=== PATIENT | female | born 1940 ===

== ENCOUNTER 2017-03-23 21:11 | Inpatient (IN) | payer OTHER, MEDICARE ==
[2017-03-23] MEDS ORDERED: Albuterol-Ipratrop 3 mg / 0.5 (3 ml) UD IH STA (22:08)
[2017-03-23 22:24] LABS: BASO # 0.1 K/uL (0.0-0.2); BASO % 0.7 % (0.0-2.0); EOS # 0.6 K/uL (0.0-0.7); EOS % 5.5 % (0.0-4.0); LYMPH # 2.6 K/uL (1.0-4.3); LYMPH % 23.5 % (20.0-40.0); MEAN CORPUSCULAR HEMOGLOBIN 30.7 pg (27.0-31.0); MEAN CORPUSCULAR HGB CONC 33.3 g/dL (33.0-37.0); MONO % 8.9 % (0.0-10.0); RED CELL DISTRIBUTION WIDTH 12.9 % (11.5-14.5); WHITE BLOOD COUNT 11.2 K/uL (4.8-10.8)
[2017-03-23] MEDS ORDERED: Albuterol-Ipratrop 3 mg / 0.5 (3 ml) UD ONE (22:25)
[2017-03-23 22:33] LABS: CHLORIDE 100 mmol/L (98-107)
[2017-03-23 22:34] LABS: POTASSIUM 4.3 mmol/L (3.6-5.2); SODIUM 141 mmol/L (132-148)
[2017-03-23 22:36] LABS: ALB/GLOB RATIO 1.1 (1.0-2.1); ALKALINE PHOSPHATASE 55 U/L (38-126); AST/SGOT 79 U/L (14-36); BILIRUBIN,TOTAL 0.6 mg/dL (0.2-1.3); BLOOD UREA NITROGEN 24 mg/dL (7-17); CARBON DIOXIDE 28 mmol/L (22-30); GFR AFRICAN-AMERICAN > 60; GLUCOSE,RANDOM 128 mg/dL (65-105); TOTAL PROTEIN 7.7 g/dL (6.3-8.3)
[2017-03-23 22:37] LABS: ALT/SGPT 55 U/L (9-52); CALCIUM 9.1 mg/dl (8.6-10.4)
[2017-03-23] MEDS ORDERED: Sodium Chloride 0.9% 1,000 ML IV ONE (22:59)
[2017-03-23] MEDS ORDERED: Sodium Chloride 0.9% 1,000 ML ONE (23:08)
--- NOTE | 2017-03-24 00:13 | CT ---
EXAM: CT Head Without Intravenous Contrast CLINICAL HISTORY: 76 years old, female; Condition or disease; Headache; Headache not specified TECHNIQUE: Axial computed tomography images of the head/brain without intravenous contrast. All CT scans at this facility use one or more dose reduction techniques, viz.: automated exposure control; ma/kV adjustment per patient size (including targeted exams where dose is matched to indication; i.e. head); or iterative reconstruction technique. COMPARISON: No relevant prior studies available. FINDINGS: Brain: No acute intracranial hemorrhage. Age-appropriate periventricular white matter disease. No edema. Ventricles: Age-appropriate ventriculomegaly. Bones: No acute displaced fracture. Sinuses: Unremarkable as visualized. No acute sinusitis. Mastoid air cells: Unremarkable as visualized. No mastoid effusion. IMPRESSION: No acute intracranial hemorrhage, or suspicious mass effect.
--- NOTE | 2017-03-24 00:24 | C.PDOC ---
Time Seen by Provider: 03/23/17 21:53 Chief Complaint (Nursing): Cough, Cold, Congestion History Per: Patient Onset/Duration Of Symptoms: Days (1), Gradual Current Symptoms Are (Timing): Still Present Location Of Pain: Headache Associated Symptoms: Cough Severity: Moderate Additional History Per: Prior Records Past Medical History Reviewed: Historical Data, Nursing Documentation, Vital Signs Vital Signs: Last Vital Signs Temp 98.1 F 03/23/17 21:18 Pulse 82 03/23/17 22:02 Resp 20 03/23/17 22:02 BP 143/71 03/23/17 22:02 Pulse Ox 98 03/23/17 22:02 - Medical History PMH: Asthma, HTN Surgical History: Cholecystectomy Family History: States: Unknown Family Hx - Social History Hx Alcohol Use: No Hx Substance Use: No - Immunization History Hx Tetanus Toxoid Vaccination: No Hx Influenza Vaccination: No Hx Pneumococcal Vaccination: No Review Of Systems Except As Marked, All Systems Reviewed And Found Negative. Constitutional: Negative for: Fever Eyes: Negative for: Pain, Vision Change ENT: Negative for: Ear Pain, Ear Discharge, Throat Pain Cardiovascular: Negative for: Chest Pain Respiratory: Positive for: Cough, Wheezing. Negative for: Hemoptysis Gastrointestinal: Negative for: Vomiting, Abdominal Pain Musculoskeletal: Negative for: Neck Pain Skin: Negative for: Rash Neurological: Positive for: Headache. Negative for: Weakness, Numbness, Seizures Physical Exam - Physical Exam Appears: Non-toxic, No Acute Distress Skin: Normal Color, Warm, Dry, No Rash Head: Atraumatic, Tenderness (right temporal) Eye(s): bilateral: PERRL, EOMI Neck: Normal ROM, Supple Cardiovascular: Rhythm Regular Respiratory: Normal Breath Sounds, No Accessory Muscle Use Gastrointestinal/Abdominal: Soft, No Tenderness Back: No CVA Tenderness Extremity: Normal ROM, No Pedal Edema, No Calf Tenderness Neurological/Psych: Oriented x3, Normal Speech, Normal Cognition, Normal Motor, Normal Sensation ED Course And Treatment - Laboratory Results Result Diagrams: 03/23/17 22:15 03/23/17 22:15 Lab Interpretation: Abnormal Interpretation Of Abnormal: Elevated ESR and CRP O2 Sat by Pulse Oximetry: 98 Pulse Ox Interpretation: Normal - Radiology CXR: Interpreted by Me, Viewed By Me CXR Interpretation: Yes: No Acute Disease - CT Scan/US CT head Other Rad Studies (CT/US): Read By Radiologist, Radiology Report Reviewed CT/US Interpretation: IMPRESSION: No acute intracranial hemorrhage, or suspicious mass effect. Progress - Interventions Interventions:: Observation, Intravenous fluid - Medications Administered Inhaled nebulized: Anticholinergic, Beta-2 agonist Intravenous: Corticosteroid - Data Reviewed Data Reviewed: Lab, Diagnostic imaging, Old records - Patient Status Patient status: Partially improved - Continuity of Care Discussed patient case with:: Patient, ED Nurse, On-call PMD-pt unassigned - Patient Plan Patient Plan: Admission Disposition Discussed With : Maddy Beverly Comment: She accepted pt on her service. Doctor Will See Patient In The: Hospital Counseled Patient/Family Regarding: Studies Performed, Diagnosis - Disposition Disposition: HOSPITALIZED Disposition Time: 00:28 Condition: GUARDED - Clinical Impression Clinical Impression: Asthma exacerbation, Temporal arteritis
[2017-03-24] MEDS ORDERED: Aspirin 325 mg EC Tablets PO ONE (00:29)
[2017-03-24] MEDS ORDERED: MethylPREDNISolone 40 mg Vial IVP SCH (10:00)
--- NOTE | 2017-03-24 10:21 | RAD ---
PROCEDURE: CHEST RADIOGRAPH, 1 VIEW HISTORY: Cough and wheezing COMPARISON: None available. FINDINGS: LUNGS: The lungs are well inflated. There is peribronchial thickening and streaky opacities in the lungs. No focal consolidation. PLEURA: No pneumothorax or pleural fluid seen. CARDIOVASCULAR: Normal. OSSEOUS STRUCTURES: No significant abnormalities. VISUALIZED UPPER ABDOMEN: Normal. OTHER FINDINGS: None. IMPRESSION: Findings are most compatible with reactive small airway disease/ viral bronchitis. No pneumonia.
[2017-03-24] MEDS: Vitamin B Complex/Vitamin C Tab PO SCH (10:46)
[2017-03-24] MEDS: cefTRIAXone IV 1 gm in Dextros 50 ML IVPB SCH (10:47)
--- NOTE | 2017-03-24 12:14 | MRI ---
PROCEDURE: MRI BRAIN WITHOUT CONTRAST HISTORY: Headache COMPARISON: Noncontrast head CT from 03/23/2017 TECHNIQUE: Multiplanar, multisequence MR images of the brain were obtained without intravenous contrast enhancement. FINDINGS: HEMORRHAGE: None DWI: No evidence of an acute or early subacute infarction. BRAIN PARENCHYMA: There are moderate chronic microangiopathic changes. There is no mass, mass effect or abnormal extra-axial fluid collection. The midline sagittal structures are normal. VENTRICLES: There is mild age-related global parenchymal volume loss and proportionate enlargement of the ventricles and cortical sulci. CRANIUM: Is normal bone marrow signal pattern. ORBITS: Grossly unremarkable. PARANASAL SINUSES/MASTOIDS: The paranasal sinuses are predominantly clear. There is a right mastoid effusion. The left mastoid air cells are clear. VASCULAR SYSTEM: The normal signal voids in bilateral larger intracranial arteries. OTHER FINDINGS: None. IMPRESSION: 1. No acute intracranial abnormality. 2. Moderate chronic microangiopathic changes and mild age-related global parenchymal volume loss. 3. Right mastoid effusion.
--- NOTE | 2017-03-24 12:32 | CP.PCM.CON ---
History of Present Illness - History of Present Illness History of Present Illness: Reason for consult: Asthma exacerbation The patient is a 76 year old female, with a past medical history of asthma and HTN, who presented to the emergency department last night with a chief complaint of shortness of breath and headache. While in the emergency room she was given Duoneb, high dose solumedrol, and IV fluid (NS). Imaging was done and she was admitted to the medical floor for possible temporal arteritis and asthma exacerbation. Patient seen and examined bedside this AM. Family was bedside and translated. Patient reports that she has experienced muscle weakness in the past after taking her asthma medications. She is experiencing the same weakness now after being treated in the emergency department for suspected temporal arteritis (high dose steroids). She is able to move her right leg but has weakness with left leg movement. Patient also reports back pain at this time. She denied chest pain, dyspnea, cough, f/c. From pulmonology standpoint the patients asthma is under control. Continue Albuterol PRN for symptomatic relief, discontinue steroids due to muscle weakness, follow up with technical operations vice president as needed. PMHx: Asthma, HTN, DM, dementia SurgHx: Cholecystectomy Family hx: denies Social hx: denied tobacco, drug and ETOH use Allergies: NKDA Home meds: donepezil, symbicort, atorvastatin, metformin, Iron supplement, Glimepiride CXR (03/23/17): Findings are most compatible with reactive small airway disease/ viral bronchitis. No pneumonia. Head CT (03/24/17): No acute intracranial hemorrhage, or suspicious mass effect CXR (03/24/17): Review of Systems - Review of Systems All systems: reviewed and no additional remarkable complaints except (headache but denies shortness of breath, slight cough) Past Patient History - Past Medical History & Family History Past Medical History?: Yes - Past Social History Smoking Status: Unknown If Ever Smoked - CARDIAC Hx Cardiac Disorders: Yes Hx Hypertension: Yes - PULMONARY Hx Respiratory Disorders: Yes Hx Asthma: Yes - NEUROLOGICAL Hx Neurological Disorder: No - HEENT Hx HEENT Problems: Yes Hx Cataracts: Yes - RENAL Hx Chronic Kidney Disease: No - ENDOCRINE/METABOLIC Hx Endocrine Disorders: Yes Hx Diabetes Mellitus Type 1: Yes - HEMATOLOGICAL/ONCOLOGICAL Hx Blood Disorders: No - INTEGUMENTARY Hx Dermatological Problems: No - MUSCULOSKELETAL/RHEUMATOLOGICAL Hx Musculoskeletal Disorders: Yes Hx Falls: Yes - GASTROINTESTINAL Hx Gastrointestinal Disorders: No - GENITOURINARY/GYNECOLOGICAL Hx Genitourinary Disorders: No - PSYCHIATRIC Hx Psychophysiologic Disorder: No Hx Substance Use: No - SURGICAL HISTORY Hx Surgeries: Yes Hx Cholecystectomy: Yes - ANESTHESIA Hx Anesthesia: Yes Hx Anesthesia Reactions: No Hx Malignant Hyperthermia: No Has any member of the family had a problem w/ anesthesia?: No Meds Allergies/Adverse Reactions: Allergies Allergy/AdvReac Type Severity Reaction Status Date / Time No Known Allergies Allergy Verified 03/23/17 21:22 - Medications Medications: Current Medications Acetaminophen (Tylenol 325mg Tab) 650 mg PO Q4H PRN PRN Reason: pain fever Last Admin: 03/24/17 10:50 Dose: 650 mg Albuterol/Ipratropium (Duoneb 3 Mg/0.5 Mg (3 Ml) Ud) 3 ml INH RQ6 PRN PRN Reason: Shortness of Breath Donepezil HCl (Aricept) 10 mg PO DAILY [facility] Last Admin: 03/24/17 10:46 Dose: 10 mg Famotidine (Pepcid) 20 mg PO DAILY [facility] Last Admin: 03/24/17 10:47 Dose: 20 mg Glimepiride (Amaryl) 2 mg PO DAILY [facility] Last Admin: 03/24/17 10:46 Dose: 2 mg Heparin Sodium (Porcine) (Heparin) 5,000 units SC Q12 [facility] Last Admin: 03/24/17 10:47 Dose: 5,000 units Ceftriaxone Sodium (Rocephin Iv 1 Gm Duplex) 50 mls @ 100 mls/hr IVPB DAILY [facility] Last Admin: 03/24/17 10:47 Dose: 100 mls/hr Metformin HCl (Glucophage) 500 mg PO BID [facility] Last Admin: 03/24/17 10:46 Dose: 500 mg Rosuvastatin Calcium (Crestor) 5 mg PO HS [facility] Fluticasone/Salmeterol (Advair Diskus 250/50) 1 puff INH RQ12 [facility] Vitamin B Complex/Vitamin C (Berocca) 1 tab PO DAILY [facility] Last Admin: 03/24/17 10:46 Dose: 1 tab Physical Exam - Constitutional Appears: No Acute Distress - Head Exam Head Exam: ATRAUMATIC, NORMOCEPHALIC - Eye Exam Eye Exam: Normal appearance - ENT Exam ENT Exam: Mucous Membranes Moist - Neck Exam Neck exam: Positive for: Normal Inspection - Respiratory Exam Respiratory Exam: Clear to Auscultation Bilateral - Cardiovascular Exam Cardiovascular Exam: REGULAR RHYTHM - GI/Abdominal Exam GI & Abdominal Exam: Normal Bowel Sounds, Soft - Extremities Exam Extremities exam: Positive for: normal inspection - Neurological Exam Neurological exam: Alert, Oriented x3 Results - Vital Signs Recent Vital Signs: Last Vital Signs Temp 97.5 F L 03/24/17 07:46 Pulse 86 03/24/17 07:46 Resp 20 03/24/17 07:46 BP 167/76 H 03/24/17 07:46 Pulse Ox 96 03/24/17 07:46 - Labs Result Diagrams: 03/23/17 22:15 03/23/17 22:15 Labs: Laboratory Results - last 24 hr 03/24/17 07:15 POC Glucose (mg/dL) 216 H Assessment & Plan (1) Asthma Status: Acute Comment: Asthma is stable from pulmonary standpoint. continue nebulizer treatment and Advair. Pulmonary function test as outpatient. Followup if necessary
[2017-03-24] MEDS ORDERED: Albuterol-Ipratrop 3 mg / 0.5 (3 ml) UD INH PRN (14:00)
--- NOTE | 2017-03-24 19:55 | CON ---
DATE: REASON FOR CONSULTATION: Headaches. HISTORY OF PRESENT ILLNESS: The patient is a 76-year-old female who has been asked for evaluation of headaches. The patient apparently is having headache on and off over the last several weeks. Yesterday, headache was severe, so she decided to come to the emergency room. Headaches are not associated with any nausea, vomiting, photophobia nor phonophobia, or blurred vision. She was not taking any medications at home for headaches. She is also complaining of difficulty with walking. REVIEW OF SYSTEMS: Denies any chest pain, shortness of breath, abdominal pain, constipation, diarrhea, dysuria, cough, or sputum production. PAST MEDICAL HISTORY: Includes memory loss, hypercholesterolemia, and diabetes mellitus. MEDICATIONS AT HOME: Included Aricept, Symbicort, atorvastatin, metformin, multivitamin, Amaryl, and amoxicillin. ALLERGIES: NO KNOWN DRUG ALLERGIES. SOCIAL HISTORY: Denies smoking, use of alcohol or illicit drugs. FAMILY HISTORY: Reviewed and noncontributory to the case. PHYSICAL EXAMINATION: GENERAL: The patient is an elderly female lying on the bed, in no acute distress. VITAL SIGNS: Her blood pressure is 157/76, heart rate is 86 per minute, breathing at the rate of 16 and temperature is 97.5 degrees Fahrenheit. HEENT: Normocephalic and atraumatic. NECK: Supple. There are no carotid bruit. LUNGS: Clear. CARDIOVASCULAR: S1 and S2 audible. No murmurs. ABDOMEN: Soft and nontender. Bowel sounds are present. NEUROLOGIC: Mental status; the patient is awake, alert, and oriented to place and person. She follows all simple commands. Cranial nerve examination; pupils are 3 mm, nonreactive to light. Extraocular movements are intact. There is no facial asymmetry. Palate is upgoing bilaterally and tongue is midline. Motor examination; tone is normal, and power is 5/5 bilaterally, normal extremity reflexes+1 and symmetrical. Plantars downgoing bilaterally. Cerebellar examination; [id number] shows no dysmetria. Gait is slightly unsteady. She is walking with the help of cane. LABORATORY DATA: Labs reviewed showed WBC 11.2, hemoglobin of 12.3, hematocrit of 37.0, and platelets of 177. Sodium 141, potassium 4.3, chloride 100, carbon dioxide 28, BUN of 24, creatinine of 1.0, and glucose of 128. She had CT scan of the head done which show no acute internal cranial hemorrhage or infarct. She also has an ESR which is 46. IMPRESSION: 1. Headaches which appears to be tension type, the ESR is not high enough to consider temporal arthritis, besides the patient has no blurred vision. 2. Gait dysfunction. RECOMMENDATIONS: 1. The patient to have a MRI of the brain without contrast. 2. The patient may have Tylenol p.r.n. for headaches. 3. If, Tylenol does not help her headaches, she may tried on nonsteroidal anti-inflammatory drugs like naproxen or ibuprofen as needed. 4. The patient to have physical therapy for gait imbalance. 5. MRI of the brain is negative, she may be discharged with outpatient followup, and she may require outpatient physical therapy. Thank you for the opportunity to participate in the care of this patient. Paola Olmos MD
[2017-03-24] MEDS ORDERED: Fluticasone-Salmeterol 250-50mcg Diskus INH SCH (20:00)
[2017-03-25 07:17] LABS: HEMATOCRIT 35.7 % (34.0-47.0); MEAN CORPUSCULAR HEMOGLOBIN 30.7 pg (27.0-31.0); MEAN CORPUSCULAR HGB CONC 33.4 g/dL (33.0-37.0); MEAN PLATELET VOLUME 9.1 fL (7.2-11.7); RED CELL DISTRIBUTION WIDTH 12.8 % (11.5-14.5); WHITE BLOOD COUNT 9.8 K/uL (4.8-10.8)
[2017-03-25] MEDS: cefTRIAXone IV 1 gm in Dextros 50 ML IVPB SCH (08:00)
[2017-03-25 08:06] LABS: POTASSIUM 4.3 mmol/L (3.6-5.2)
[2017-03-25 08:10] LABS: CALCIUM 8.8 mg/dl (8.6-10.4)
[2017-03-25 08:45] LABS: THYROID STIMULATING HORMONE 1.99 mIU/L (0.46-4.68)
[2017-03-25] MEDS: Vitamin B Complex/Vitamin C Tab PO SCH (09:55)
--- NOTE | 2017-03-25 12:13 | HP ---
The patient is a 76-year-old female. CHIEF COMPLAINT: Coughing, shortness of breath, intractable headache. HISTORY OF PRESENT ILLNESS: The patient is a 76-year-old female with past medical history of asthma and hypertension, came to emergency room by complaining intractable headache, shortness of breath, coughing. In the ER, the patient got DuoNeb, Solu-Medrol and IV fluid. According to ER physician, the patient has temporal arteritis because of the headache and because of prominent temporal blood vessel and I saw the patient in the morning. The patient's son and granddaughter were sitting on the bedside. Headache was little bit better. No nausea, vomiting or diarrhea. PAST MEDICAL HISTORY: Asthma, hypertension, diabetes mellitus and dementia. SURGICAL HISTORY: Cholecystectomy. FAMILY HISTORY: Father and mother are noncontributory. HABITS: No smoking. No drug. No ethanol. ALLERGIES: THE PATIENT IS NOT ALLERGIC TO ANY MEDICATION. HOME MEDICATIONS: Reviewed by me; glimepiride, iron, metformin, atorvastatin, Symbicort and donepezil. REVIEW OF SYSTEMS: The patient was seen and examined at the bedside, looking comfortable. No nausea, vomiting, or diarrhea. No hematuria or hematochezia. No swelling of the leg. No chest pain. No palpitation. Still having headache, but labeled better. PHYSICAL EXAMINATION VITAL SIGNS: Temperature 97.6, pulse 77, blood pressure is 122/87, and respiratory rate is 20. HEENT: Head is normocephalic and atraumatic. Eyes: PERRLA. Extraocular muscles intact. Conjunctivae clear. Nose patent. Mucous membranes are moist. NECK: Supple. No carotid bruit. No JVD or thyromegaly. CHEST: Bilaterally symmetrical. HEART: S1 and S2 positive. LUNGS: Clear to auscultation. ABDOMEN: Soft. EXTREMITIES: No edema. No cyanosis. NEUROLOGIC: The patient is awake and alert. Moving all four extremities. No focal deficits. LABORATORY DATA: White blood cell 11.2, hemoglobin 12.2, hematocrit 37.0 and platelets 177. Sodium 141, potassium 4.3, BUN 24, creatinine 1.0, glucose 216, AST 79 and ALT 55. ASSESSMENT AND PLAN: The patient is a 76-year-old lady with leucocytosis; diabetes mellitus, uncontrolled; abnormal liver function tests, came with intractable headache, steroids given in the ER. Neurology consult called with Dr. Olmos. CAT scan and MRI of the head done. According to Dr. Olmos, headache appears to be tension type. The ESR is not high enough to consider temporal arteritis. Besides, the patient has no blurring of vision, gait dysfunction and he suggested Tylenol p.r.n. for headache. If Tylenol will not help, then the patient can get ibuprofen or naproxen, nonsteroidal anti-inflammatory drugs; will get physical therapy as outpatient for ataxia. Reviewed MRI results. The patient has moderate, chronic microangiopathic changes and mild age-related global parenchymal volume loss, right mastoid occlusion. Seen by the commercial credit head, Dr. Migue Frost. Asthma is stable from pulmonary point of scan, to continue nebulizer treatment and Advair, PFT as outpatient. Discussion done with the patient's son and granddaughter. We will follow. Maddy Beverly MD MTDD
--- NOTE | 2017-03-26 04:51 | PN ---
DATE: SUBJECTIVE: The patient is examined on the bedside, looking comfortable. No nausea, vomiting or diarrhea. No hematuria or hematochezia. No swelling of the leg. No chest pain or palpitation. No headache and no dizziness. PHYSICAL EXAMINATION VITAL SIGNS: Temperature of 98.6, pulse of 70, and blood pressure of 124/73 and respiratory rate 20. HEENT: Head is normocephalic and atraumatic. Eyes, PERRLA. Extraocular muscles intact. Conjunctivae clear. Nose patent. Mucous membrane moist. NECK: Supple. No carotid bruits. No JVD or thyromegaly. CHEST: Bilaterally symmetrical. HEART: S1 and S2 positive. LUNGS: Clear to auscultation. ABDOMEN: Soft. Bowel sounds present. No organomegaly. EXTREMITIES: No edema. No cyanosis. NEUROLOGICAL: The patient is awake and alert. Moving all 4 extremities. No focal deficit. MEDICATIONS: Advair, Aricept, vitamins, Crestor, DuoNeb, Glucophage, heparin, Pepcid, Rocephin and Tylenol. LABORATORY DATA: White blood cell 9.8, hemoglobin 11.9, hematocrit 35.7, and platelets 160. Sodium 141, potassium 4.3, BUN 22, creatinine 1.1, glucose 124 and triglycerides 184. ASSESSMENT AND PLAN: Mrs. Gerson Harry is a 76-year-old lady with increased BUN, diabetes mellitus, hypertriglyceridemia, history of leukocytosis, improved. Patient is seen by Dr. Migue Frost, Dr. Paola Olmos. Migraine headache, asthma, hypertension, dementia. thinking about giant cell arteritis, but according to neurologist, ESR is not high enough to support giant cell arteritis, but still I thought we will talk with Neurology . Gastrointestinal and deep venous thrombosis prophylaxis. Repeat labs and we will followup. Maddy Beverly MD MTDD
[2017-03-26] MEDS: Vitamin B Complex/Vitamin C Tab PO SCH (09:52)
[2017-03-26] MEDS: cefTRIAXone IV 1 gm in Dextros 50 ML IVPB SCH (10:18)
[2017-03-27 00:46] VITALS: BP 148/82; PULSE 74; RESP 16; TEMP 98.4; O2SAT 99
--- NOTE | 2017-03-27 01:13 | PN ---
DATE: 03/26/2017 SUBJECTIVE: The patient is seen and examined on the bedside, looking comfortable. No nausea, vomiting, or diarrhea. No hematuria or hematochezia. No swelling of the leg. No chest pain. No headache. No dizziness. PHYSICAL EXAMINATION: VITAL SIGNS: Temperature 99.1, pulse 82, blood pressure 146/86, and respiratory rate 20. HEENT: Head is normocephalic and atraumatic. Eyes, PERRLA. Extraocular muscles intact. Conjunctivae clear. Nose patent. Mucous membranes moist. NECK: Supple. No carotid bruits. No JVD or thyromegaly. CHEST: Bilaterally symmetrical. HEART: S1 and S2 positive. LUNGS: Clear to auscultation. ABDOMEN: Soft. Bowel sounds present. No organomegaly. EXTREMITIES: No edema. No cyanosis. NEUROLOGICAL: The patient is awake and alert. Moving all 4 extremities. No focal deficits. MEDICATIONS: Advair, Aricept, Berocca, Crestor, albuterol, Glucophage, heparin, Pepcid, Rocephin, Tylenol and Zofran. LABORATORY DATA: White blood cell 9.8, hemoglobin 11.9, hematocrit 35.7, and platelets 160. Glucose 189, 129, 119, 142, 114. ASSESSMENT AND PLAN: Mrs. Gerson Harry is a 77-year-old lady came with intractable headache as per Emergency Room, giant cell arteritis. Neurology consult called with Dr. Paola Olmos. According to him, erythrocyte sedimentation rate is not high enough for giant cell arteritis, looks like migraine, improved; diabetes mellitus, increased BUN, hypertriglyceridemia, leukocytosis. 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 Gastrointestinal and deep venous thrombosis prophylaxis. Repeat labs. We will followup. Maddy Beverly MD
[2017-03-27] MEDS: Vitamin B Complex/Vitamin C Tab PO SCH (10:14)
[2017-03-27] MEDS: cefTRIAXone IV 1 gm in Dextros 50 ML IVPB SCH (10:15)
--- NOTE | 2017-03-27 11:54 | CP.PCM.PN ---
Subjective - Date & Time of Evaluation Date of Evaluation: 03/27/17 Time of Evaluation: 11:53 - Subjective Subjective: awake, alert, no sob or chest pains, NAD. Objective - Vital Signs/Intake and Output Vital Signs (last 24 hours): Temp Pulse Resp BP Pulse Ox 98.4 F 74 16 148/82 99 03/27/17 00:45 03/27/17 00:45 03/27/17 00:45 03/27/17 00:45 03/27/17 00:45 - Medications Medications: Current Medications Acetaminophen (Tylenol 325mg Tab) 650 mg PO Q4H PRN PRN Reason: pain fever Last Admin: 03/25/17 09:57 Dose: 650 mg Albuterol/Ipratropium (Duoneb 3 Mg/0.5 Mg (3 Ml) Ud) 3 ml INH RQ6 PRN PRN Reason: Shortness of Breath Donepezil HCl (Aricept) 10 mg PO DAILY [facility] Last Admin: 03/27/17 10:14 Dose: 10 mg Famotidine (Pepcid) 20 mg PO DAILY [facility] Last Admin: 03/27/17 10:15 Dose: 20 mg Heparin Sodium (Porcine) (Heparin) 5,000 units SC Q12 [facility] Last Admin: 03/27/17 10:20 Dose: 5,000 units Ceftriaxone Sodium (Rocephin Iv 1 Gm Duplex) 50 mls @ 100 mls/hr IVPB DAILY [facility] Last Admin: 03/27/17 10:15 Dose: 100 mls/hr Metformin HCl (Glucophage) 500 mg PO BID [facility] Last Admin: 03/27/17 10:14 Dose: 500 mg Ondansetron HCl (Zofran Inj) 4 mg IVP Q4 PRN PRN Reason: Nausea/Vomiting Last Admin: 03/26/17 15:18 Dose: 4 mg Rosuvastatin Calcium (Crestor) 5 mg PO HS [facility] Last Admin: 03/26/17 21:48 Dose: 5 mg Fluticasone/Salmeterol (Advair Diskus 250/50) 1 puff INH RQ12 [facility] Vitamin B Complex/Vitamin C (Berocca) 1 tab PO DAILY [facility] Last Admin: 03/27/17 10:14 Dose: 1 tab - Labs Labs: 03/25/17 06:44 03/25/17 06:44 Assessment and Plan - Assessment and Plan (Free Text) Assessment: Patient is seen and examined. Awake, alert, on chair, no sob or chest pains. Seen by DR Beverly, plan to discharge home today, advised to follow up in the office in 1 week.
--- NOTE | 2017-04-03 23:46 | DS ---
The patient was admitted on 03/23/2017, discharged on 03/27/2017. CHIEF COMPLAINT: Cough, cold, congestion. HISTORY OF PRESENT ILLNESS: Ms. Kamryn Nieto is a 76-year-old lady with past medical history of asthma and hypertension, who came to [facility] with cough, cold, congestion. It started gradually, was present at the time of admission, had a headache, has history of asthma and hypertension, and we admitted the patient. We did CAT scan of the head, chest x-ray, and brain MRI. She was seen by Dr. Santosh Camarena, got better, and was discharged home. PAST MEDICAL HISTORY: Asthma, hypertension, cholecystectomy. FAMILY HISTORY: Father and mother noncontributory. HABITS: No smoking, no drugs, no ethanol. ALLERGIES: THE PATIENT IS NOT ALLERGIC TO ANY MEDICATIONS. HOME MEDICATIONS: Reviewed by me. REVIEW OF SYSTEMS: The patient was seen and examined at the bedside, looking comfortable. No nausea, vomiting, or diarrhea. No hematuria or hematochezia. No swelling of the legs. No chest pain and no palpitations. No headache. Cough and shortness of breath are getting better. Awake, alert. PHYSICAL EXAMINATION: VITAL SIGNS: Temperature is 98.4, pulse 74, respiratory rate 16, blood pressure 148/82, pulse oximetry is 99%. HEENT: Head is normocephalic and atraumatic. Eyes: PERRLA. Extraocular muscles intact. Conjunctivae are clear. Nose patent. Mucous membranes moist. NECK: Supple. No carotid bruit. No JVD. No thyromegaly. CHEST: Bilaterally symmetric. HEART: S1 and S2 positive. LUNGS: Clear to auscultation. ABDOMEN: Soft. Bowel sounds present. No organomegaly. EXTREMITIES: No edema and no cyanosis. NEUROLOGIC: The patient awake and alert, follows simple commands. MEDICATIONS: Tylenol, Duoneb, Aricept, Pepcid, heparin, Rocephin, Glucophage, Zofran, Crestor, Advair. LABORATORY DATA: White blood cells 9.8, hemoglobin 11.9, hematocrit of 35.7, platelets of 150. Sodium of 141, potassium of 4.3, BUN 22, creatinine 1.1, glucose 114. ASSESSMENT AND PLAN: Ms. Kamryn Nieto is a 76-year-old lady with hyperglycemia, who came in with exacerbation of chronic obstructive pulmonary disease and asthma, came with intractable headache, got better, ruled out giant cell arteritis. Neurology consult was called with Dr. Paola Olmos. According to him, erythrocyte sedimentation rate is not at the level of giant cell arteritis and the patient got better. It looked like migraine , had increased BUN, history of leukocytosis, and dementia. The patient was treated in the hospital, seen by Dr. Santosh Camarena, clinical reviewer, and neurologist, Dr. Paola Olmos. Discharged home by Jackelyn Wolfe, nurse practitioner. prescription given. Follow up in my office and with clinical reviewer. Maddy Beverly MD MTDAlvin
== END 2017-03-27 12:48 | disposition home or self-care (01) | DRG 891 ==
LOC: C.ER 21:11 → C.3T 03-24 00:29
PROVIDERS: ADMIT Internal Medicine; ATTEND Internal Medicine
DX: G44.209 Tension-type headache, unspecified, not intractable (principal); E10.65 Type 1 diabetes mellitus with hyperglycemia; J45.901 Unspecified asthma with (acute) exacerbation; D72.829 Elevated white blood cell count, unspecified; I10 Essential (primary) hypertension; R79.89 Other specified abnormal findings of blood chemistry; R26.9 Unspecified abnormalities of gait and mobility; E78.1 Pure hyperglyceridemia

== ENCOUNTER 2017-08-08 13:58 | Observation (INO) | payer MEDICARE, OTHER ==
[2017-08-08] MEDS ORDERED: Albuterol-Ipratrop 3 mg / 0.5 (3 ml) UD ONE ×3 (16:12→19:53)
[2017-08-08 16:16] LABS: BASO # 0.1 K/uL (0.0-0.2); BASO % 0.5 % (0.0-2.0); EOS # 0.2 K/uL (0.0-0.7); EOS % 1.2 % (0.0-4.0); HEMOGLOBIN 12.8 g/dL (11.0-16.0); LYMPH # 2.2 K/uL (1.0-4.3); LYMPH % 15.9 % (20.0-40.0); MEAN CELL VOLUME 92.1 fL (81.0-99.0); MEAN CORPUSCULAR HGB CONC 32.6 g/dL (33.0-37.0); MEAN PLATELET VOLUME 8.7 fL (7.2-11.7); MONO # 1.3 K/uL (0.0-0.8); MONO % 9.5 % (0.0-10.0); NEUT # 9.9 K/uL (1.8-7.0); NEUT % 72.9 % (50.0-75.0); RBC 4.28 Mil/uL (3.80-5.20); WHITE BLOOD COUNT 13.5 K/uL (4.8-10.8)
[2017-08-08] MEDS: Albuterol-Ipratrop 3 mg / 0.5 (3 ml) UD IH SCH ×3 (16:16→17:23)
[2017-08-08 16:26] LABS: ALBUMIN 4.1 g/dL (3.5-5.0); ALT/SGPT 18 U/L (9-52); AST/SGOT 26 U/L (14-36); BLOOD UREA NITROGEN 32 mg/dL (7-17); CALCIUM 8.9 mg/dl (8.6-10.4); GFR AFRICAN-AMERICAN 48; GFR NON-AFRICAN AMERICAN 40; MAGNESIUM 1.3 mg/dL (1.6-2.3)
[2017-08-08 16:37] LABS: B-TYPE NATRIURETIC PEPTIDE 132 pg/mL (0-900)
[2017-08-08] MEDS ORDERED: Magnesium Sulfate 1 gm in D5W 1 GM/100 ML BAG IVPB STA (16:38)
[2017-08-08] MEDS ORDERED: Sodium Chloride 0.9% 1,000 ML IV ONE (16:39)
--- NOTE | 2017-08-08 16:58 | RAD ---
PROCEDURE: CHEST RADIOGRAPH, 1 VIEW HISTORY: SOB, cough, wheezing. Portable study 16:16 COMPARISON: 03/23/2017 FINDINGS: LUNGS: Clear. PLEURA: No pneumothorax or pleural fluid seen. CARDIOVASCULAR: No radiographic findings to suggest acute or significant cardiovascular disease. OSSEOUS STRUCTURES: No significant abnormalities. VISUALIZED UPPER ABDOMEN: Normal. OTHER FINDINGS: None. IMPRESSION: No active disease. No acute/significant interval changes.
[2017-08-08] MEDS ORDERED: Magnesium Sulfate 1 gm in D5W 1 GM/100 ML BAG IVPB ONE ×3 (17:20→21:22)
--- NOTE | 2017-08-08 18:18 | C.PDOC ---
Time Seen by Provider: 08/08/17 15:01 Chief Complaint (Nursing): Shortness Of Breath History Per: Patient Onset/Duration Of Symptoms: Days (about 1 week) Current Symptoms Are (Timing): Still Present Initiating Event: Upper Respiratory Illness Exacerbating Factor(s): Coughing Current Respiratory Medications: See Home Med List Severity: Moderate Associated Symptoms: Productive Cough Recent travel outside of the [place]: No Additional History Per: Prior Records Past Medical History Reviewed: Historical Data, Nursing Documentation, Vital Signs Vital Signs: Last Vital Signs Temp 98.4 F 08/08/17 16:20 Pulse 86 08/08/17 16:20 Resp 20 08/08/17 16:20 BP 138/62 08/08/17 16:20 Pulse Ox 99 08/08/17 16:20 - Medical History PMH: Arthritis (L KNEE, BACK), Asthma, COPD (ASTHMA), Diabetes, HTN Surgical History: Cholecystectomy Family History: States: Unknown Family Hx - Social History Hx Tobacco Use: No Hx Alcohol Use: No Hx Substance Use: No - Immunization History Hx Tetanus Toxoid Vaccination: No Hx Influenza Vaccination: No Hx Pneumococcal Vaccination: No Review Of Systems Except As Marked, All Systems Reviewed And Found Negative. Constitutional: Positive for: Malaise. Negative for: Fever Respiratory: Positive for: Cough, Shortness of Breath, Wheezing. Negative for: Hemoptysis Gastrointestinal: Negative for: Vomiting, Abdominal Pain Genitourinary: Negative for: Dysuria Musculoskeletal: Negative for: Neck Pain, Leg Pain Skin: Negative for: Rash Neurological: Positive for: Headache. Negative for: Weakness, Numbness Physical Exam - Physical Exam Appears: In Acute Distress (mild) Skin: Normal Color, Warm, Dry, No Rash Head: Atraumatic, Normacephalic Eye(s): bilateral: Normal Inspection, PERRL, EOMI Oral Mucosa: Dry, No Drooling, No Trismus Neck: Normal ROM, Supple Cardiovascular: Rhythm Regular Respiratory: No Accessory Muscle Use, Wheezing Gastrointestinal/Abdominal: Soft, No Tenderness Back: No CVA Tenderness Extremity: Normal ROM, No Pedal Edema, No Calf Tenderness Neurological/Psych: Oriented x3, Normal Motor, Normal Sensation ED Course And Treatment - Laboratory Results Result Diagrams: 08/08/17 16:10 08/08/17 16:10 Interpretation Of Abnormal: Mild hypomagnesemia. Elevated BUN/Cr. O2 Sat by Pulse Oximetry: 99 Pulse Ox Interpretation: Normal - Radiology CXR: Viewed By Me, Read By Radiologist CXR Interpretation: Yes: No Acute Disease Progress Note: after meds pt feels a little better after meds, but she is still wheezing and dyspneic. Progress - Interventions Interventions:: Observation, Intravenous fluid - Medications Administered Inhaled nebulized: Anticholinergic, Beta-2 agonist Intravenous: Corticosteroid - Data Reviewed Data Reviewed: Lab, Diagnostic imaging, Old records - Patient Status Patient status: Partially improved - Critical Care Citical Care: Excluding Proc Time Critical Care Time: 45 minutes - Continuity of Care Discussed patient case with:: Patient, ED Nurse, Covering for PMD - Patient Plan Patient Plan: Admission Disposition Discussed With Dr.: Kristy Brown Comment: She accepted pt on hospitalist service as pt's PMD is Dr. Mock. Doctor Will See Patient In The: Hospital Counseled Patient/Family Regarding: Studies Performed, Diagnosis - Disposition Disposition: HOSPITALIZED Disposition Time: 18:00 Condition: FAIR - Clinical Impression Clinical Impression: COPD exacerbation
--- NOTE | 2017-08-08 18:37 | CP.PCM.HP ---
History of Present Illness - History of Present Illness History of Present Illness: CC: I'm having another asthma attack HPI: Mrs Nieto is a 77 year old lithuanian speaking female with a past medical history of Asthma, DM, HTN, Dementia, who was sent by her PMD, Dr Chan, because she was short of breath. She has also been dry coughing. She states the shortness of breath and cough began last night. She was able to go to sleep but woke up during the night due to cough. She went to her PMD, Dr Chan who evaluated the patient and sent her to [facility] ER. She was diagnosed with asthma 30 years ago and uses her inhaler about 1-2 a week. She uses 2 inhalers at home but can't recall their name. She was brought to the ER in 02/2017 also for similar symptoms. She denies chest pain, abdominal pain, fever, chills, focal deficits, dysuria. 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 FamHx: Father from asthma attack Present on Admission - Present on Admission Any Indicators Present on Admission: No Review of Systems - Constitutional Constitutional: absent: Chills, Fever, Malaise, Weakness - EENT Eyes: absent: Change in Vision - Cardiovascular Cardiovascular: absent: Chest Pain - Respiratory Respiratory: Cough, Dyspnea, Dyspnea on Exertion - Gastrointestinal Gastrointestinal: absent: Abdominal Pain, Constipation, Diarrhea - Genitourinary Genitourinary: absent: Dysuria - Neurological Neurological: absent: Disequilibrium, Dizziness Past Patient History - Past Medical History & Family History Past Medical History?: Yes - Past Social History Smoking Status: Unknown If Ever Smoked - CARDIAC Hx Hypertension: Yes - PULMONARY Hx Asthma: Yes Hx Chronic Obstructive Pulmonary Disease (COPD): Yes (ASTHMA) - NEUROLOGICAL Hx Neurological Disorder: No - HEENT Hx HEENT Problems: Yes Hx Cataracts: Yes - RENAL Hx Chronic Kidney Disease: No - ENDOCRINE/METABOLIC Hx Endocrine Disorders: Yes Hx Diabetes Mellitus Type 1: Yes - HEMATOLOGICAL/ONCOLOGICAL Hx Blood Disorders: No - INTEGUMENTARY Hx Dermatological Problems: No - MUSCULOSKELETAL/RHEUMATOLOGICAL Hx Arthritis: Yes (L KNEE, BACK) - GASTROINTESTINAL Hx Gastrointestinal Disorders: No - GENITOURINARY/GYNECOLOGICAL Hx Genitourinary Disorders: No - PSYCHIATRIC Hx Substance Use: No - SURGICAL HISTORY Hx Cholecystectomy: Yes - ANESTHESIA Hx Anesthesia: Yes Hx Anesthesia Reactions: No Hx Malignant Hyperthermia: No Meds Allergies/Adverse Reactions: Allergies Allergy/AdvReac Type Severity Reaction Status Date / Time No Known Allergies Allergy Verified 08/08/17 14:06 Physical Exam - Constitutional Appears: Well, No Acute Distress - Head Exam Head Exam: ATRAUMATIC, NORMAL INSPECTION - Eye Exam Eye Exam: EOMI Pupil Exam: PERRL - ENT Exam ENT Exam: Mucous Membranes Moist - Neck Exam Neck exam: Positive for: Normal Inspection. Negative for: Tenderness - Respiratory Exam Respiratory Exam: Wheezes Additional comments: diffuse wheezing bilaterally - Cardiovascular Exam Cardiovascular Exam: REGULAR RHYTHM, +S1, +S2. absent: Bradycardia, Tachycardia , JVD, Systolic Murmur - GI/Abdominal Exam GI & Abdominal Exam: Normal Bowel Sounds, Soft. absent: Distended, Firm, Guarding, Tenderness - Extremities Exam Extremities exam: Positive for: normal capillary refill, normal inspection, pedal pulses present. Negative for: calf tenderness, pedal edema, tenderness - Neurological Exam Neurological exam: Alert, Oriented x3 - Psychiatric Exam Psychiatric exam: Normal Affect, Normal Mood - Skin Skin Exam: Intact, Normal Color, Warm Results - Vital Signs Recent Vital Signs: Last Vital Signs Temp 98.4 F 08/08/17 16:20 Pulse 86 08/08/17 16:20 Resp 20 08/08/17 16:20 BP 138/62 08/08/17 16:20 Pulse Ox 99 08/08/17 18:23 - Labs Result Diagrams: 08/08/17 16:10 08/08/17 16:10 Labs: Laboratory Results - last 24 hr 08/08/17 08/08/17 08/08/17 16:02 16:10 16:10 WBC 13.5 H RBC 4.28 Hgb 12.8 Hct 39.4 MCV 92.1 MCH 30.0 MCHC 32.6 L RDW 13.0 Plt Count 261 D MPV 8.7 Neut % (Auto) 72.9 Lymph % (Auto) 15.9 L [place] % (Auto) 9.5 Eos % (Auto) 1.2 Baso % (Auto) 0.5 Neut # 9.9 H Lymph # 2.2 [place] # 1.3 H Eos # 0.2 Baso # 0.1 Sodium 135 Potassium 3.8 Chloride 101 Carbon Dioxide 25 Anion Gap 13 BUN 32 H Creatinine 1.3 H Est GFR ( Amer) 48 Est GFR (Non-Af Amer) 40 Random Glucose 185 H Calcium 8.9 Magnesium 1.3 L Total Bilirubin 0.6 AST 26 ALT 18 Alkaline Phosphatase 55 Troponin I < 0.0120 NT-Pro-B Natriuret Pep 132 Total Protein 8.2 Albumin 4.1 Globulin 4.1 H Albumin/Globulin Ratio 1.0 Influenza Typ A,B (EIA) Negative for flu a/b Assessment & Plan (1) Asthma exacerbation Assessment and Plan: F/U ABG F/U Legionella urine Ag, F/U mycoplasma IgM, F/U strep pneumoniae urine Ag F/U CXR PA/Lat F/U d-dimer CXR 08/08/17: No active disease. No acute/significant interval changes. Meds: Nasal cannula 2L Solu-medrol 40mg IVP Q8H Duoneb 3ml INH Q4H Promethazine/Codeine 5ml PO Q4 PRN for cough Con't home med Singulair 10mg PO QD Advair Diskus (home med Symbicort non-formulary) Status: Acute Priority: High (2) Leukocytosis Assessment and Plan: afebrile F/U UA, F/U Blood culture, F/U Urine Culture White count will bump up due to steroids Status: Acute (3) Diabetes Assessment and Plan: F/U HgbA1C Accuchecks Con't home med Glimepiride 2mg PO QD Crestor 10mg PO QD (home med atorvastatin non-formulary) HOLD home metformin 500mg PO BID due to elevated Cr Status: Chronic Priority: High (4) Hypertension Assessment and Plan: BP well controlled Hydrochlorothiazide 12.5mg PO QD Losartan 100mg PO QD Home med valsartan/hydrochlorothiazide non-formulary Status: Chronic Priority: High (5) Elevated serum creatinine Assessment and Plan: On admission: BUN 32 and Cr 1.3 Normal Saline at 100 cc/hr HOLD home metformin Status: Acute (6) Prophylactic measure Assessment and Plan: Protonix 40mg PO QD SCDs, Heparin 5000u SC Q8H Heart healthy diet - consistent carb Status: Acute Priority: Low
[2017-08-08] MEDS ORDERED: Promethazine/Cod 6.25mg-10mg/5ml Syr UD PO PRN (20:06)
[2017-08-08] MEDS: Albuterol-Ipratrop 3 mg / 0.5 (3 ml) UD INH SCH (20:07)
[2017-08-08] MEDS ORDERED: Sodium Chloride 0.9% 1,000 ML IV SCH (20:15)
[2017-08-08 20:29] LABS: ARTERIAL BLOOD GAS HCO3 24.1 mmol/L (21-28); ARTERIAL BLOOD GAS HEMOGLOBIN 14.1 g/dL (11.7-17.4); ARTERIAL BLOOD GAS O2 SAT 99.6 % (95-98); ARTERIAL BLOOD GAS PCO2 33 mm/Hg (35-45); ARTERIAL BLOOD GAS PH 7.44 (7.35-7.45); ARTERIAL BLOOD GAS PO2 167 mm/Hg (80-100); ARTERIAL BLOOD GAS TCO2 23.4 mmol/L (22-28)
[2017-08-08] MEDS ORDERED: MethylPREDNISolone 40 mg Vial ONE (21:21)
[2017-08-08] MEDS ORDERED: Sodium Chloride 0.9% 1,000 ML ONE (21:22)
[2017-08-08] MEDS: MethylPREDNISolone 40 mg Vial IVP SCH (21:25)
[2017-08-08 21:43] LABS: CK-MB 0.94 ng/mL (0.0-3.38)
[2017-08-09] MEDS: (Novolin R) Insulin Human Regular 100 units/ml vial SC SCH ×5 (00:27→17:36)
[2017-08-09] MEDS ORDERED: (Novolin R) Insulin Human Regular 100 units/ml vial ONE (00:29)
[2017-08-09] MEDS ORDERED: Iodixanol 320 MG/ML 100 ML BOTTLE IV ONE (01:17)
[2017-08-09 03:48] LABS: CK-MB 0.77 ng/mL (0.0-3.38)
[2017-08-09 04:34] VITALS: O2SAT 96
[2017-08-09] MEDS: MethylPREDNISolone 40 mg Vial IVP SCH ×3 (06:15→12:56)
[2017-08-09] MEDS: Albuterol-Ipratrop 3 mg / 0.5 (3 ml) UD INH SCH ×5 (06:37→17:09)
[2017-08-09 07:29] LABS: HEMOGLOBIN 10.9 g/dL (11.0-16.0); LYMPH # 0.6 K/uL (1.0-4.3); LYMPH % 4.6 % (20.0-40.0); MEAN CELL VOLUME 91.9 fL (81.0-99.0); MEAN CORPUSCULAR HEMOGLOBIN 30.9 pg (27.0-31.0); MEAN CORPUSCULAR HGB CONC 33.6 g/dL (33.0-37.0); MEAN PLATELET VOLUME 8.4 fL (7.2-11.7); MONO # 0.7 K/uL (0.0-0.8); MONO % 5.3 % (0.0-10.0); NEUT # 12.7 K/uL (1.8-7.0); NEUT % 90.1 % (50.0-75.0); PLATELET COUNT 217 K/uL (130-400); RBC 3.54 Mil/uL (3.80-5.20); RED CELL DISTRIBUTION WIDTH 12.7 % (11.5-14.5); WHITE BLOOD COUNT 14.1 K/uL (4.8-10.8)
[2017-08-09 07:48] LABS: ALB/GLOB RATIO 1.1 (1.0-2.1); ALBUMIN 3.4 g/dL (3.5-5.0); CALCIUM 7.6 mg/dl (8.6-10.4)
[2017-08-09] MEDS ORDERED: Fluticasone-Salmeterol 250-50mcg Diskus INH SCH (08:00)
[2017-08-09 09:25] LABS: BANDS 1 % (0-2); LYMPHOCYTE 2 % (20-40); MONOCYTE 2 % (0-10); NEUTROPHIL 95 % (50-75); PLATELET ESTIMATE NORMAL (NORMAL); TOTAL CELLS COUNTED 100
[2017-08-09] MEDS ORDERED: Glucagon Recombinant 1 mg Inj IM PRN (09:35)
[2017-08-09] MEDS ORDERED: Dextrose 50% SYRINGE Inj (50 ml) IV PRN (09:35)
[2017-08-09] MEDS ORDERED: Promethazine DM 6.25 mg-15 mg/5 ml Syrup PO PRN (09:36)
[2017-08-09] MEDS ORDERED: Pantoprazole 40 mg EC Tab PO SCH (10:00)
--- NOTE | 2017-08-09 10:24 | RAD ---
HISTORY: COPD severity COMPARISON: Portable chest 08/08/2017. TECHNIQUE: Chest PA and lateral FINDINGS: LUNGS: No active pulmonary disease. PLEURA: No significant pleural effusion identified. No pneumothorax apparent. CARDIOVASCULAR: Normal. OSSEOUS STRUCTURES: No significant abnormalities. VISUALIZED UPPER ABDOMEN: Normal. OTHER FINDINGS: None. IMPRESSION: No interval acute cardiopulmonary disease appreciated.
[2017-08-09 10:50] LABS: CK-MB 1.01 ng/mL (0.0-3.38)
--- NOTE | 2017-08-09 11:08 | CT ---
PROCEDURE: CT Chest with contrast (Pulmonary Angiogram) HISTORY: Elevated ed d dimer. r/o PE COMPARISON: Comparison made with prior chest radiograph 08/08/2017 TECHNIQUE: Axial computed tomography images were obtained of the chest in the pulmonary arterial phase of enhancement. Coronal and sagittal reformatted images were created and reviewed. Intravenous contrast dose: 100 cc Visipaque 320 Radiation dose: Total exam DLP = 293.88 mGy-cm. This CT exam was performed using one or more of the following dose reduction techniques: Automated exposure control, adjustment of the mA and/or kV according to patient size, and/or use of iterative reconstruction technique. FINDINGS: PULMONARY ARTERIES: The visualized pulmonary trunk, right and left main, lobar, segmental and proximal subsegmental branches of the pulmonary arteries are well opacified with no definitive filling defects seen to suggest acute pulmonary embolus. . Pulmonary trunk measures approximately 2.4 cm in transverse dimension. AORTA: No acute findings. No thoracic aortic aneurysm. Ascending thoracic aorta measures approximately 2.5 cm and descending thoracic aorta measures approximately 2.0 cm. LUNGS: Mild passive/dependent type atelectasis seen in both posterior lower lung [place]. There also appears to be some minor localized pleural thickening the left posterior upper lung [place] as well PLEURAL SPACES: Unremarkable. No effusion or pneumothorax HEART: U heart appears mildly enlarged. No significant pericardial effusion. LYMPH NODES: No significant mediastinal or hilar adenopathy. Central airways are midline and patent. The no large endobronchial lesions are identified. Questionable localized wall thickening of the mid esophagus of uncertain etiology the localized wall lesion cannot be excluded. . There is also a small hiatal hernia with wall thickening of the distal esophagus that could be due to esophagitis the again recommend followup endoscopy for further evaluation to exclude a invasive wall lesion such as esophageal carcinoma and/or esophagitis as detailed above. . BONES, CHEST WALL: Unremarkable. No fracture or destructive lesion OTHER FINDINGS: Unremarkable. Gallbladder has been surgically resected with metallic clips in gallbladder fossa. IMPRESSION: No evidence to suggest acute pulmonary embolus. There is a small hiatal hernia with wall thickening of the distal esophagus that could be due to protrusion of gastric mucosa however esophagitis or other intrinsic/invasive wall lesion including esophageal carcinoma not excluded. Additionally, there also appears to be localized wall thickening of the midesophagus at the level of the donald ; invasive wall lesion such as esophageal carcinoma not excluded. Followup consultation and endoscopy recommended. Note that this case was discussed with emergency room nurse practitioner (CONCIERGE MANAGER) Rachel at approximately 11 a.m. with written down and read back verification.
--- NOTE | 2017-08-09 13:21 | NM ---
COMPARISON: 2017. Single-view chest. 2017. CT pulmonary angiogram TECHNIQUE: 9.1 mCi technetium 99-m Xe-133 Gas. 30.4 mCI technetium 99-m MAA administered intravenously. FINDINGS: VENTILATION COMPONENT: Normal. PERFUSION COMPONENT: Heterogeneous distribution of radionuclide. No geographic, segmental, lobar abnormalities apparent on the present examination. IMPRESSION: Low probability ventilation perfusion scan for pulmonary embolism.
--- NOTE | 2017-08-09 14:29 | CP.PCM.DIS ---
<Angel Rosales - Last Filed: 08/09/17 18:00> Provider - Provider Date of Admission: 08/08/17 18:24 Attending physician: Kristy Borwn DO Consults: [place] - Dr. Julia Frost Time Spent in preparation of Discharge (in minutes): 50 Hospital Course - Lab Results Lab Results: Most Recent Lab Values WBC 14.1 K/uL (4.8-10.8) H 08/09/17 07:12 RBC 3.54 Mil/uL (3.80-5.20) L 08/09/17 07:12 Hgb 10.9 g/dL (11.0-16.0) L 08/09/17 07:12 Hct 32.6 % (34.0-47.0) L 08/09/17 07:12 MCV 91.9 fL (81.0-99.0) 08/09/17 07:12 MCH 30.9 pg (27.0-31.0) 08/09/17 07:12 MCHC 33.6 g/dL (33.0-37.0) 08/09/17 07:12 RDW 12.7 % (11.5-14.5) 08/09/17 07:12 Plt Count 217 K/uL (130-400) 08/09/17 07:12 MPV 8.4 fL (7.2-11.7) 08/09/17 07:12 Neut % (Auto) 90.1 % (50.0-75.0) H 08/09/17 07:12 Lymph % (Auto) 4.6 % (20.0-40.0) L 08/09/17 07:12 [place] % (Auto) 5.3 % (0.0-10.0) 08/09/17 07:12 Eos % (Auto) 0.0 % (0.0-4.0) 08/09/17 07:12 Baso % (Auto) 0.0 % (0.0-2.0) 08/09/17 07:12 Neut # 12.7 K/uL (1.8-7.0) H 08/09/17 07:12 Lymph # 0.6 K/uL (1.0-4.3) L 08/09/17 07:12 [place] # 0.7 K/uL (0.0-0.8) 08/09/17 07:12 Eos # 0.0 K/uL (0.0-0.7) 08/09/17 07:12 Baso # 0.0 K/uL (0.0-0.2) 08/09/17 07:12 Neutrophils % (Manual) 95 % (50-75) H 08/09/17 07:12 Band Neutrophils % 1 % (0-2) 08/09/17 07:12 Lymphocytes % (Manual) 2 % (20-40) L 08/09/17 07:12 Monocytes % (Manual) 2 % (0-10) 08/09/17 07:12 Platelet Estimate Normal (NORMAL) 08/09/17 07:12 RBC Morphology Normal 08/09/17 07:12 D-Dimer, Quantitative 586 ng/mlDDU (0-243) H 08/08/17 21:15 Puncture Site Rra 08/08/17 20:25 pCO2 33 mm/Hg (35-45) L 08/08/17 20:25 pO2 167 mm/Hg (80-100) H 08/08/17 20:25 HCO3 24.1 mmol/L (21-28) 08/08/17 20:25 ABG pH 7.44 (7.35-7.45) 08/08/17 20:25 ABG Total CO2 23.4 mmol/L (22-28) 08/08/17 20:25 ABG O2 Saturation 99.6 % (95-98) H 08/08/17 20:25 ABG Base Excess -1.0 mmol/L (-2.0-3.0) 08/08/17 20:25 ABG Hemoglobin 14.1 g/dL (11.7-17.4) 08/08/17 20:25 ABG Carboxyhemoglobin 1.4 % (0.5-1.5) 08/08/17 20:25 POC ABG HHb (Measured) 0.4 % (0.0-5.0) 08/08/17 20:25 ABG Methemoglobin 1.1 % (0.0-3.0) 08/08/17 20:25 Luis Test Na 08/08/17 20:25 Hgb O2 Saturation 97.1 % (95.0-98.0) 08/08/17 20:25 Sodium 135 mmol/L (132-148) 08/09/17 07:12 Potassium 4.1 mmol/L (3.6-5.2) 08/09/17 07:12 Chloride 104 mmol/L (98-107) 08/09/17 07:12 Carbon Dioxide 23 mmol/L (22-30) 08/09/17 07:12 Anion Gap 12 (10-20) 08/09/17 07:12 BUN 31 mg/dL (7-17) H 08/09/17 07:12 Creatinine 1.4 mg/dL (0.7-1.2) H 08/09/17 07:12 Est GFR ( Amer) 44 08/09/17 07:12 Est GFR (Non-Af Amer) 36 08/09/17 07:12 POC Glucose (mg/dL) 269 mg/dL (65-110) H 08/09/17 11:07 Random Glucose 166 mg/dL (65-105) H 08/09/17 07:12 Hemoglobin A1c 6.7 % (4.2-6.5) H 08/08/17 21:15 Calcium 7.6 mg/dl (8.6-10.4) L 08/09/17 07:12 Magnesium 1.3 mg/dL (1.6-2.3) L 08/08/17 16:10 Total Bilirubin 0.3 mg/dL (0.2-1.3) 08/09/17 07:12 AST 16 U/L (14-36) 08/09/17 07:12 ALT 13 U/L (9-52) 08/09/17 07:12 Alkaline Phosphatase 50 U/L (38-126) 08/09/17 07:12 Total Creatine Kinase 61 U/L (30-135) 08/09/17 10:18 CK-MB (Mass) 1.01 ng/mL (0.0-3.38) 08/09/17 10:18 Troponin I < 0.0120 ng/mL (0.00-0.120) 08/09/17 10:18 NT-Pro-B Natriuret Pep 132 pg/mL (0-900) 08/08/17 16:10 Total Protein 6.5 g/dL (6.3-8.3) 08/09/17 07:12 Albumin 3.4 g/dL (3.5-5.0) L 08/09/17 07:12 Globulin 3.0 gm/dL (2.2-3.9) 08/09/17 07:12 Albumin/Globulin Ratio 1.1 (1.0-2.1) 08/09/17 07:12 Influenza Typ A,B (EIA) Negative for flu a/b (NEGATIVE) 08/08/17 16:02 - Hospital Course Hospital Course: HPI: Mrs. Nieto is a 77-year-old English-speaking female with a past medical history of asthma, DM, HTN, dementia, who was sent by her PMD, Dr. Chan, because she was short of breath. She has also been dry coughing. She states the shortness of breath and cough began last night. She was able to go to sleep but woke up during the night due to cough. She went to her PMD, Dr. Chan who evaluated the patient and sent her to [facility]. She was diagnosed with asthma 30 years ago and uses her inhaler about 1-2x a week. She uses 2 inhalers at home but cant recall their name. She was brought to the ER in 02/2017 also for similar symptoms. She denies chest pain, abdominal pain, fever, chills, focal deficits, dysuria. SUMMARY OF COURSE: Kamryn Nieto is a 77-year-old female who was admitted to [facility] 08/08/2017-08/09/2017 for an episode of asthma exacerbation. Her medical history is notable for asthma, diabetes mellitus, hypertension, COPD and dementia. While at the hospital, she was treated with Solu-medrol, Duoneb, Advair, Singulair and supplemental oxygen. Pulmonology was consulted. She had two chest x-rays taken, both which showed no active disease and no acute /interval changes. She had normal electrocardiogram. Her Chest CT showed 1) no evidence of acute pulmonary embolus 2) a small hiatal hernia 3) localized wall thickening of the midesophagus - invasive wall lesion such as esophageal carcinoma not excluded. Her lung perfusion scan showed a low probability for a pulmonary embolism. She is to follow up with her PMH Dr. Chan in 1 week. She is also to follow up with the Software Engineer Developer, Dr. Frost for evaluation. She is recommended for follow up GI consultation and endoscopy outpatient due to CT scan results. Gave patient CD of imaging results along with printed out summary of results. Told patient to give that to PMD and GI physician. Told patient that she must follow up with GI for endoscopy. DISCHARGE MEDICATIONS: Scheduled: Valsartan/HCTZ 160 12.5 mg, 1 tab by mouth 1x/day (breakfast) Metformin 500 mg, 1 tab by mouth 2x/day (breakfast & dinner) Glimeperide 2 mg, 1 tab by mouth 1x/day (breakfast) Symbicort 150 4.5 mg, 1 PO Inhalation 2x/day (breakfast & dinner) Lipitor 40 mg, 1 tab PO 1x/day (dinner) Montelukast 10 mg, 1 tab PO 1x/day (dinner) Prednisone 10 mg, 5 tab PO 1x/day 08/10/17 4 tab PO 1 x/day 08/11/17 3 tab PO 1x/day 08/12/17 2 tab PO 1x/day 08/13/17 1 tab PO 1x/day 08/14/18 PRN: Albuterol 90 mcg, 2 PO Inhalation Q6H PRN for SOB/wheezing. - Date & Time of H&P Date of H&P: 08/09/17 Time of H&P: 15:00 Discharge Exam - Head Exam Head Exam: ATRAUMATIC, NORMAL INSPECTION - Eye Exam Eye Exam: EOMI, Normal appearance - ENT Exam Additional comments: NC on - Respiratory Exam Respiratory Exam: Wheezes (faint), NORMAL BREATHING PATTERN. absent: Accessory Muscle Use, Rales, Rhonchi - Cardiovascular Exam Cardiovascular Exam: RRR, +S1, +S2 - GI/Abdominal Exam GI & Abdominal Exam: Normal Bowel Sounds, Soft. absent: Tenderness - Extremities Exam Extremities exam: normal inspection - Neurological Exam Neurological exam: Alert, Oriented x3 - Psychiatric Exam Psychiatric exam: Normal Affect, Normal Mood Discharge Plan - Discharge Medications Prescriptions: Albuterol HFA [Ventolin HFA 90 mcg/actuation (8 g)] 2 puff IH [id number] PRN #1 puff PRN Reason: SOB and Wheezing Atorvastatin [Lipitor] 40 mg PO DIN #30 tab Budesonide/Formoterol Fumarate [Symbicort 160-4.5 Mcg Inhaler] 10.2 gm IH BID # 1 hfa.aer.ad Glimepiride [Amaryl] 2 mg PO DAILY #30 tab metFORMIN [glucOPHAGE] 500 mg PO BID #60 tab Montelukast Sodium [Singulair] 10 mg PO DAILY #30 tablet predniSONE [Prednisone] 10 mg PO ASDIR #15 tab Valsartan/Hydrochlorothiazide [Diovan Hct 160-12.5 mg Tab] 1 each PO DAILY #30 tablet - Follow Up Plan Condition: FAIR Disposition: HOME/ ROUTINE Instructions: Albuterol (By breathing), Prednisone (By mouth), Glimepiride (By mouth), Metformin (By mouth), Atorvastatin (By mouth), Montelukast (By mouth), Valsartan/Hydrochlorothiazide (By mouth), Budesonide/Formoterol (By breathing), Asthma (DC), Heart Healthy Diet (DC), Diabetic Foot Care (DC), COPD (Chronic Obstructive Pulmonary Disease) (DC), Basic Carbohydrate Counting (DC), Meal Planning with the Plate Method (DC), Meal Planning with Diabetes Exchanges (DC) , Hypertension (DC) Additional Instructions: 1) Stay well-hydrated with water 2) Take the Prednisone with breakfast 3) Follow up with Software Engineer Developer (Lung Doctor) Dr. Frost for evaluation by calling his office at [phone] 4) Follow up with PMD Dr. Mock in 1 week and bring hospital discharge paper work with you to your appointment. At this appointment you must get referral to see Jockey Room Custodian for upper endoscopy and biopsy due to chest CT findings. Rx: Valsartan/HCTZ 160 12.5 mg, 1 tab by mouth 1x/day (breakfast). Disp #30, no refills. Metformin 500 mg, 1 tab by mouth 2x/day (breakfast & dinner). Disp #60, no refills. Glimeperide 2 mg, 1 tab by mouth 1x/day (breakfast). Disp #30, no refills. Symbicort 150 4.5 mg, 1 PO Inhalation 2x/day (breakfast & dinner). Disp #1, no refills. Albuterol 90 mcg, 2 PO Inhalation Q6H PRN for SOB/wheezing. Disp #1, no refills. Lipitor 40 mg, 1 tab PO 1x/day (dinner). Disp #30, no refills. Montelukast 10 mg, 1 tab PO 1x/day (dinner). Disp #30, no refills. Prednisone 10 mg, 5 tab PO 1x/day 08/10/17, 4 tab PO 1 x/day 08/11/17, 3 tab PO 1x /day 08/12/17, 2 tab PO 1x/day 08/13/17, 1 tab PO 1x/day 08/14/18. Disp #15, no refills. Referrals: Migue Frost MD [Staff Provider] - <Teto Bob - Last Filed: 08/09/17 19:20> Provider - Provider Date of Admission: 08/08/17 18:24 Attending physician: Kristy [facility] Course - Lab Results Lab Results: Most Recent Lab Values WBC 14.1 K/uL (4.8-10.8) H 08/09/17 07:12 RBC 3.54 Mil/uL (3.80-5.20) L 08/09/17 07:12 Hgb 10.9 g/dL (11.0-16.0) L 08/09/17 07:12 Hct 32.6 % (34.0-47.0) L 08/09/17 07:12 MCV 91.9 fL (81.0-99.0) 08/09/17 07:12 MCH 30.9 pg (27.0-31.0) 08/09/17 07:12 MCHC 33.6 g/dL (33.0-37.0) 08/09/17 07:12 RDW 12.7 % (11.5-14.5) 08/09/17 07:12 Plt Count 217 K/uL (130-400) 08/09/17 07:12 MPV 8.4 fL (7.2-11.7) 08/09/17 07:12 Neut % (Auto) 90.1 % (50.0-75.0) H 08/09/17 07:12 Lymph % (Auto) 4.6 % (20.0-40.0) L 08/09/17 07:12 [place] % (Auto) 5.3 % (0.0-10.0) 08/09/17 07:12 Eos % (Auto) 0.0 % (0.0-4.0) 08/09/17 07:12 Baso % (Auto) 0.0 % (0.0-2.0) 08/09/17 07:12 Neut # 12.7 K/uL (1.8-7.0) H 08/09/17 07:12 Lymph # 0.6 K/uL (1.0-4.3) L 08/09/17 07:12 [place] # 0.7 K/uL (0.0-0.8) 08/09/17 07:12 Eos # 0.0 K/uL (0.0-0.7) 08/09/17 07:12 Baso # 0.0 K/uL (0.0-0.2) 08/09/17 07:12 Neutrophils % (Manual) 95 % (50-75) H 08/09/17 07:12 Band Neutrophils % 1 % (0-2) 08/09/17 07:12 Lymphocytes % (Manual) 2 % (20-40) L 08/09/17 07:12 Monocytes % (Manual) 2 % (0-10) 08/09/17 07:12 Platelet Estimate Normal (NORMAL) 08/09/17 07:12 RBC Morphology Normal 08/09/17 07:12 D-Dimer, Quantitative 586 ng/mlDDU (0-243) H 08/08/17 21:15 Puncture Site Rra 08/08/17 20:25 pCO2 33 mm/Hg (35-45) L 08/08/17 20:25 pO2 167 mm/Hg (80-100) H 08/08/17 20:25 HCO3 24.1 mmol/L (21-28) 08/08/17 20:25 ABG pH 7.44 (7.35-7.45) 08/08/17 20:25 ABG Total CO2 23.4 mmol/L (22-28) 08/08/17 20:25 ABG O2 Saturation 99.6 % (95-98) H 08/08/17 20:25 ABG Base Excess -1.0 mmol/L (-2.0-3.0) 08/08/17 20:25 ABG Hemoglobin 14.1 g/dL (11.7-17.4) 08/08/17 20:25 ABG Carboxyhemoglobin 1.4 % (0.5-1.5) 08/08/17 20:25 POC ABG HHb (Measured) 0.4 % (0.0-5.0) 08/08/17 20:25 ABG Methemoglobin 1.1 % (0.0-3.0) 08/08/17 20:25 Luis Test Na 08/08/17 20:25 Hgb O2 Saturation 97.1 % (95.0-98.0) 08/08/17 20:25 Sodium 135 mmol/L (132-148) 08/09/17 07:12 Potassium 4.1 mmol/L (3.6-5.2) 08/09/17 07:12 Chloride 104 mmol/L (98-107) 08/09/17 07:12 Carbon Dioxide 23 mmol/L (22-30) 08/09/17 07:12 Anion Gap 12 (10-20) 08/09/17 07:12 BUN 31 mg/dL (7-17) H 08/09/17 07:12 Creatinine 1.4 mg/dL (0.7-1.2) H 08/09/17 07:12 Est GFR ( Amer) 44 08/09/17 07:12 Est GFR (Non-Af Amer) 36 08/09/17 07:12 POC Glucose (mg/dL) 178 mg/dL (65-110) H 08/09/17 17:01 Random Glucose 166 mg/dL (65-105) H 08/09/17 07:12 Hemoglobin A1c 6.7 % (4.2-6.5) H 08/08/17 21:15 Calcium 7.6 mg/dl (8.6-10.4) L 08/09/17 07:12 Magnesium 1.3 mg/dL (1.6-2.3) L 08/08/17 16:10 Total Bilirubin 0.3 mg/dL (0.2-1.3) 08/09/17 07:12 AST 16 U/L (14-36) 08/09/17 07:12 ALT 13 U/L (9-52) 08/09/17 07:12 Alkaline Phosphatase 50 U/L (38-126) 08/09/17 07:12 Total Creatine Kinase 61 U/L (30-135) 08/09/17 10:18 CK-MB (Mass) 1.01 ng/mL (0.0-3.38) 08/09/17 10:18 Troponin I < 0.0120 ng/mL (0.00-0.120) 08/09/17 10:18 NT-Pro-B Natriuret Pep 132 pg/mL (0-900) 08/08/17 16:10 Total Protein 6.5 g/dL (6.3-8.3) 08/09/17 07:12 Albumin 3.4 g/dL (3.5-5.0) L 08/09/17 07:12 Globulin 3.0 gm/dL (2.2-3.9) 08/09/17 07:12 Albumin/Globulin Ratio 1.1 (1.0-2.1) 08/09/17 07:12 Influenza Typ A,B (EIA) Negative for flu a/b (NEGATIVE) 08/08/17 16:02 Attending/Attestation - Attestation I have personally seen and examined this patient.: Yes I have fully participated in the care of the patient.: Yes I have reviewed all pertinent clinical information, including history, physical exam and plan: Yes Notes (Text): 08/09/17 19:19 Patient was seen shortly after Resident. Exam, Assessment and Plan, and discharge instructions were thoroughly gone over with the resident. Teto Bob D.O.
--- NOTE | 2017-08-09 14:46 | CARD ---
APPROVED REPORT EKG Measurement Heart [id number] <Conclusion> Normal sinus rhythm Normal ECG
--- NOTE | 2017-08-09 15:20 | CARD ---
APPROVED REPORT EXAM: Two-dimensional and M-mode echocardiogram with Doppler and color Doppler. Other Information Quality : GoodRhythm : INDICATION Dyspnea LV Function:Systolic RISK FACTORS Hypertension Diabetes 2D DIMENSIONS IVSd0.9 (0.7-1.1cm)LVDd4.0 (3.9-5.9cm) PWd0.9 (0.7-1.1cm)LVDs2.4 (2.5-4.0cm) FS (%) 40.2 %LVEF (%)71.5 (>50%) M-Mode DIMENSIONS Left Atrium (MM)4.06 (2.5-4.0cm)Aortic Root2.85 (2.2-3.7cm) Aortic Cusp Exc.1.93 (1.5-2.0cm) Mitral Valve MV E Xgbqmfrp89.9cm/sMV A Rkkhumnf79.0cm/sE/A ratio0.9 TDI E/Lateral E'0.0E/Medial E'0.0 Tricuspid Valve TR Peak [id number]/sTR Peak Gr.[id number] LEFT VENTRICLE The left ventricle is normal size. There is borderline concentric left ventricular hypertrophy. The left ventricular function is normal. The left ventricular ejection fraction is within the normal range. There is normal LV segmental wall motion. Transmitral Doppler flow pattern is Grade I-abnormal relaxation pattern. RIGHT VENTRICLE The right ventricle is normal size. There is normal right ventricular wall thickness. The right ventricular systolic function is normal. ATRIA The left atrium is borderline dilated. The right atrium size is normal. AORTIC VALVE The aortic valve is mildly thickened. No aortic regurgitation is present. There is no aortic valvular stenosis. MITRAL VALVE The mitral valve is mildly thickened. There is no mitral valve stenosis. There is no mitral valve regurgitation noted. TRICUSPID VALVE There is mild tricuspid regurgitation. There is mild to moderate pulmonary hypertension. PULMONIC VALVE The pulmonary valve is normal in structure. There is no pulmonic valvular regurgitation. GREAT VESSELS The aortic root is normal in size. The IVC is dilated. The IVC collapses <50% with inspiration. PERICARDIAL EFFUSION There is a trace loculated anterior pericardial effusion. <Conclusion> The left ventricle is normal size. There is borderline concentric left ventricular hypertrophy. The left ventricular function is normal. The left ventricular ejection fraction is within the normal range. There is normal LV segmental wall motion. Transmitral Doppler flow pattern is Grade I-abnormal relaxation pattern. There is mild tricuspid regurgitation. There is mild to moderate pulmonary hypertension.
[2017-08-09 15:35] VITALS: BP 121/61; RESP 18; TEMP 98.2
--- NOTE | 2017-08-09 15:41 | CP.PCM.CON ---
History of Present Illness - History of Present Illness History of Present Illness: Pt is a 77 year old female with PMHx of Asthma, DM, HTN, Dementia, Migraine headaches who was admitted on 08/08/2017 for asthma exacerbation. Pt states she began with a productive cough with white sputum and shortness of breath 2 days ago which worsened yesterday (08/08/2017). Pt was sent to ED by her PCP, Dr. Chan. In ED, pt recieved IV steroids and nebulizer treatment, which partially improved symptoms. Reportedly, pt has had multiple admissions for asthma attacks over the past few years. States she has been previously admitted to ICU for severe asthma, but does not recall if she has been intubated. Reports using her rescue inhaler 1-2 days per week. Today, Patient states shortness of breath has decreased significantly, put not resolved. States cough and white sputum has decreased as well. Pt complains of mild headache. Denies chest pain, fever, chills, loss of appetite, malaise. PMHx: Asthma, DM, HTN, Dementia, Migraine headaches PSHx: Cholecystectomy, pelvic organ prolapse correction surgery, multiple breast cyst removal. Medication: Symbicort 10.2gm IH BID, prednisone 10mg PO ASDIR, metformin 500mg PO BID, Diovan 1tab PO daily, Montelukast 10mg PO daily, Glimerpiride 2mg PO daily, Atorvastating 40mg PO daily, Ventolin 2 puff IH QH PRN Allergies: NKDA Hospitalization: Multiple for asthma exacerbations over many year. most recent hospitalization on 03/23/2017-04/03/2017 here at [facility]. Family Hx: father of asthma at 85 years old Social: Never smoked. Denies alcohol and drugs. lives alone in apartment. Exam: Cardio: RR, normal S1, S2, no murmur, rubs or gallops Lungs: decreased bereath sounds and wheezes bilaterally A/P: Acute asthma exacerbation Continue Duoneb 3ml INH Q4H Continue Methylprednisolone 40mg IVP Q8H 08/08 ABG- pCO2: 33, pO2: 167, HCO3: 24.1, pH: 7.44 08/08 Influenza: negative 08/08 DDimer: 586 08/09 CT chest with contrast- No evidence to suggest acute pulmonary embolus. There is a small hiatal hernia with wall thickening of the distal esophagus possibly protrusion of gastric mucosa, however esophagitis or other intrinsic/ invasive wall lesion including esophageal carcinoma not excluded. Additionally , there also appears to be localized wall thickening of the midesophagus at the level of the donald ; invasive wall lesion such as esophageal carcinoma not excluded. 08/09 VQ Scan- Low probability ventilation perfusion scan for pulmonary embolism. 08/09 CXR- No acute cardiopulmonary disease Past Patient History - Past Medical History & Family History Past Medical History?: Yes - Past Social History Smoking Status: Never Smoked - CARDIAC Hx Hypertension: Yes - PULMONARY Hx Chronic Obstructive Pulmonary Disease (COPD): Yes - NEUROLOGICAL Hx Neurological Disorder: No - HEENT Hx HEENT Problems: Yes Hx Cataracts: Yes - RENAL Hx Chronic Kidney Disease: No - ENDOCRINE/METABOLIC Hx Diabetes Mellitus Type 2: Yes - HEMATOLOGICAL/ONCOLOGICAL Hx Blood Disorders: No - INTEGUMENTARY Hx Dermatological Problems: No - MUSCULOSKELETAL/RHEUMATOLOGICAL Hx Arthritis: Yes (L KNEE, BACK) - GASTROINTESTINAL Hx Gastrointestinal Disorders: No - GENITOURINARY/GYNECOLOGICAL Hx Genitourinary Disorders: No - PSYCHIATRIC Hx Substance Use: No - SURGICAL HISTORY Hx Cholecystectomy: Yes Other/Comment: Phani.Breast Cyst Removed,Left Hand Cyst Removed.For Inc. Lift up the Uterus. - ANESTHESIA Hx Anesthesia: Yes Hx Anesthesia Reactions: No Hx Malignant Hyperthermia: No Has any member of the family had a problem w/ anesthesia?: No Meds Home Medications: Home Medication List Medication Instructions Recorded Confirmed Type Albuterol HFA [Ventolin HFA 90 2 puff IH [id number] PRN #1 puff 08/09/17 Rx mcg/actuation (8 g)] Atorvastatin [Lipitor] 40 mg PO DIN #30 tab 08/09/17 Rx Budesonide/Formoterol Fumarate 10.2 gm IH BID #1 hfa.aer.ad 08/09/17 Rx [Symbicort 160-4.5 Mcg Inhaler] Glimepiride [Amaryl] 2 mg PO DAILY #30 tab 08/09/17 Rx Montelukast Sodium [Singulair] 10 mg PO DAILY #30 tablet 08/09/17 Rx Valsartan/Hydrochlorothiazide 1 each PO DAILY #30 tablet 08/09/17 Rx [Diovan Hct 160-12.5 mg Tab] metFORMIN [glucOPHAGE] 500 mg PO BID #60 tab 08/09/17 Rx predniSONE [Prednisone] 10 mg PO ASDIR #15 tab 08/09/17 Rx Allergies/Adverse Reactions: Allergies Allergy/AdvReac Type Severity Reaction Status Date / Time No Known Allergies Allergy Verified 08/08/17 14:06 - Medications Medications: Current Medications Acetaminophen (Tylenol 325mg Tab) 650 mg PO Q6 PRN PRN Reason: Headache Last Admin: 08/09/17 11:29 Dose: 650 mg Albuterol/Ipratropium (Duoneb 3 Mg/0.5 Mg (3 Ml) Ud) 3 ml INH RQ4 FIDENCIO Last Admin: 08/09/17 11:13 Dose: 3 ml Dextrose (Dextrose 50% Inj) 0 ml IV STAT PRN; Protocol PRN Reason: Hypoglycemia Protocol Dextrose (Glutose 15) 15 gm PO ONCE PRN; Protocol PRN Reason: Hypoglycemia Protocol Glimepiride (Amaryl) 2 mg PO DAILY [facility] Last Admin: 08/09/17 10:48 Dose: 2 mg Glucagon (Glucagen Diagnostic Kit) 1 mg IM STAT PRN; Protocol PRN Reason: Hypoglycemia Protocol Heparin Sodium (Porcine) (Heparin) 5,000 units SC Q8 [facility] Last Admin: 08/09/17 06:18 Dose: 5,000 units Hydrochlorothiazide (Microzide) 12.5 mg PO DAILY [facility] Last Admin: 08/09/17 10:48 Dose: 12.5 mg Sodium Chloride (Sodium Chloride 0.9%) 1,000 mls @ 100 mls/hr IV .Q10H [facility] Last Admin: 08/08/17 21:30 Dose: 100 mls/hr Dextrose (Dextrose 5% In Water 1000 Ml) 1,000 mls @ 0 mls/hr IV .Q0M PRN; Protocol; Per Protocol PRN Reason: Hypoglycemia Protocol Insulin Human Regular (Novolin R) 0 unit SC ACHS FIDENCIO PRN Reason: Protocol Last Admin: 08/09/17 12:55 Dose: 6 unit Losartan Potassium (Cozaar) 100 mg PO DAILY [facility] Last Admin: 08/09/17 10:48 Dose: 100 mg Methylprednisolone (Solu-Medrol) 40 mg IVP Q8H [facility] Last Admin: 08/09/17 12:56 Dose: 40 mg Montelukast Sodium (Singulair) 10 mg PO HS [facility] Last Admin: 08/08/17 21:31 Dose: 10 mg Pantoprazole Sodium (Protonix Ec Tab) 40 mg PO DAILY [facility] Last Admin: 08/09/17 10:47 Dose: 40 mg Promethazine HCl/Dextromethorphan (Phenergan Dm Syrup) 5 ml PO Q6H PRN PRN Reason: Cough Rosuvastatin Calcium (Crestor) 5 mg PO HS [facility] Last Admin: 08/08/17 21:31 Dose: 5 mg Fluticasone/Salmeterol (Advair Diskus 250/50) 1 puff INH RQ12 [facility] Results - Vital Signs Recent Vital Signs: Last Vital Signs Temp 98.2 F 08/09/17 15:29 Pulse 89 08/09/17 15:29 Resp 18 08/09/17 15:29 BP 121/61 08/09/17 15:29 Pulse Ox 96 08/09/17 15:29 - Labs Result Diagrams: 08/09/17 07:12 08/09/17 07:12 Labs: Laboratory Results - last 24 hr 08/08/17 08/08/17 08/08/17 16:02 16:10 16:10 WBC 13.5 H RBC 4.28 Hgb 12.8 Hct 39.4 MCV 92.1 MCH 30.0 MCHC 32.6 L RDW 13.0 Plt Count 261 D MPV 8.7 Neut % (Auto) 72.9 Lymph % (Auto) 15.9 L [place] % (Auto) 9.5 Eos % (Auto) 1.2 Baso % (Auto) 0.5 Neut # 9.9 H Lymph # 2.2 [place] # 1.3 H Eos # 0.2 Baso # 0.1 Neutrophils % (Manual) Band Neutrophils % Lymphocytes % (Manual) Monocytes % (Manual) Platelet Estimate RBC Morphology D-Dimer, Quantitative Puncture Site pCO2 pO2 HCO3 ABG pH ABG Total CO2 ABG O2 Saturation ABG Base Excess ABG Hemoglobin ABG Carboxyhemoglobin POC ABG HHb (Measured) ABG Methemoglobin Luis Test Hgb O2 Saturation Sodium 135 Potassium 3.8 Chloride 101 Carbon Dioxide 25 Anion Gap 13 BUN 32 H Creatinine 1.3 H Est GFR ( Amer) 48 Est GFR (Non-Af Amer) 40 POC Glucose (mg/dL) Random Glucose 185 H Hemoglobin A1c Calcium 8.9 Magnesium 1.3 L Total Bilirubin 0.6 AST 26 ALT 18 Alkaline Phosphatase 55 Total Creatine Kinase CK-MB (Mass) Troponin I < 0.0120 NT-Pro-B Natriuret Pep 132 Total Protein 8.2 Albumin 4.1 Globulin 4.1 H Albumin/Globulin Ratio 1.0 Influenza Typ A,B (EIA) Negative for flu a/b 08/08/17 08/08/17 08/08/17 20:25 21:15 21:15 WBC RBC Hgb Hct MCV MCH MCHC RDW Plt Count MPV Neut % (Auto) Lymph % (Auto) [place] % (Auto) Eos % (Auto) Baso % (Auto) Neut # Lymph # [place] # Eos # Baso # Neutrophils % (Manual) Band Neutrophils % Lymphocytes % (Manual) Monocytes % (Manual) Platelet Estimate RBC Morphology D-Dimer, Quantitative 586 H Puncture Site Rra pCO2 33 L pO2 167 H HCO3 24.1 ABG pH 7.44 ABG Total CO2 23.4 ABG O2 Saturation 99.6 H ABG Base Excess -1.0 ABG Hemoglobin 14.1 ABG Carboxyhemoglobin 1.4 POC ABG HHb (Measured) 0.4 ABG Methemoglobin 1.1 Luis Test Na Hgb O2 Saturation 97.1 Sodium Potassium Chloride Carbon Dioxide Anion Gap BUN Creatinine Est GFR ( Amer) Est GFR (Non-Af Amer) POC Glucose (mg/dL) Random Glucose Hemoglobin A1c Calcium Magnesium Total Bilirubin AST ALT Alkaline Phosphatase Total Creatine Kinase 67 CK-MB (Mass) 0.94 Troponin I < 0.0120 NT-Pro-B Natriuret Pep Total Protein Albumin Globulin Albumin/Globulin Ratio Influenza Typ A,B (EIA) 08/08/17 08/08/17 08/09/17 21:15 22:35 00:23 WBC RBC Hgb Hct MCV MCH MCHC RDW Plt Count MPV Neut % (Auto) Lymph % (Auto) [place] % (Auto) Eos % (Auto) Baso % (Auto) Neut # Lymph # [place] # Eos # Baso # Neutrophils % (Manual) Band Neutrophils % Lymphocytes % (Manual) Monocytes % (Manual) Platelet Estimate RBC Morphology D-Dimer, Quantitative Puncture Site pCO2 pO2 HCO3 ABG pH ABG Total CO2 ABG O2 Saturation ABG Base Excess ABG Hemoglobin ABG Carboxyhemoglobin POC ABG HHb (Measured) ABG Methemoglobin Luis Test Hgb O2 Saturation Sodium Potassium Chloride Carbon Dioxide Anion Gap BUN Creatinine Est GFR ( Amer) Est GFR (Non-Af Amer) POC Glucose (mg/dL) 350 H 416 H* Random Glucose Hemoglobin A1c 6.7 H Calcium Magnesium Total Bilirubin AST ALT Alkaline Phosphatase Total Creatine Kinase CK-MB (Mass) Troponin I NT-Pro-B Natriuret Pep Total Protein Albumin Globulin Albumin/Globulin Ratio Influenza Typ A,B (EIA) 08/09/17 08/09/17 08/09/17 02:59 04:25 06:23 WBC RBC Hgb Hct MCV MCH MCHC RDW Plt Count MPV Neut % (Auto) Lymph % (Auto) [place] % (Auto) Eos % (Auto) Baso % (Auto) Neut # Lymph # [place] # Eos # Baso # Neutrophils % (Manual) Band Neutrophils % Lymphocytes % (Manual) Monocytes % (Manual) Platelet Estimate RBC Morphology D-Dimer, Quantitative Puncture Site pCO2 pO2 HCO3 ABG pH ABG Total CO2 ABG O2 Saturation ABG Base Excess ABG Hemoglobin ABG Carboxyhemoglobin POC ABG HHb (Measured) ABG Methemoglobin Luis Test Hgb O2 Saturation Sodium Potassium Chloride Carbon Dioxide Anion Gap BUN Creatinine Est GFR ( Amer) Est GFR (Non-Af Amer) POC Glucose (mg/dL) 220 H 164 H Random Glucose Hemoglobin A1c Calcium Magnesium Total Bilirubin AST ALT Alkaline Phosphatase Total Creatine Kinase 53 CK-MB (Mass) 0.77 Troponin I < 0.0120 NT-Pro-B Natriuret Pep Total Protein Albumin Globulin Albumin/Globulin Ratio Influenza Typ A,B (EIA) 08/09/17 08/09/17 08/09/17 07:12 07:12 10:18 WBC 14.1 H RBC 3.54 L Hgb 10.9 L Hct 32.6 L MCV 91.9 MCH 30.9 MCHC 33.6 RDW 12.7 Plt Count 217 MPV 8.4 Neut % (Auto) 90.1 H Lymph % (Auto) 4.6 L [place] % (Auto) 5.3 Eos % (Auto) 0.0 Baso % (Auto) 0.0 Neut # 12.7 H Lymph # 0.6 L [place] # 0.7 Eos # 0.0 Baso # 0.0 Neutrophils % (Manual) 95 H Band Neutrophils % 1 Lymphocytes % (Manual) 2 L Monocytes % (Manual) 2 Platelet Estimate Normal RBC Morphology Normal D-Dimer, Quantitative Puncture Site pCO2 pO2 HCO3 ABG pH ABG Total CO2 ABG O2 Saturation ABG Base Excess ABG Hemoglobin ABG Carboxyhemoglobin POC ABG HHb (Measured) ABG Methemoglobin Luis Test Hgb O2 Saturation Sodium 135 Potassium 4.1 Chloride 104 Carbon Dioxide 23 Anion Gap 12 BUN 31 H Creatinine 1.4 H Est GFR ( Amer) 44 Est GFR (Non-Af Amer) 36 POC Glucose (mg/dL) Random Glucose 166 H Hemoglobin A1c Calcium 7.6 L Magnesium Total Bilirubin 0.3 AST 16 ALT 13 Alkaline Phosphatase 50 Total Creatine Kinase 61 CK-MB (Mass) 1.01 Troponin I < 0.0120 NT-Pro-B Natriuret Pep Total Protein 6.5 Albumin 3.4 L Globulin 3.0 Albumin/Globulin Ratio 1.1 Influenza Typ A,B (EIA) 08/09/17 11:07 WBC RBC Hgb Hct MCV MCH MCHC RDW Plt Count MPV Neut % (Auto) Lymph % (Auto) [place] % (Auto) Eos % (Auto) Baso % (Auto) Neut # Lymph # [place] # Eos # Baso # Neutrophils % (Manual) Band Neutrophils % Lymphocytes % (Manual) Monocytes % (Manual) Platelet Estimate RBC Morphology D-Dimer, Quantitative Puncture Site pCO2 pO2 HCO3 ABG pH ABG Total CO2 ABG O2 Saturation ABG Base Excess ABG Hemoglobin ABG Carboxyhemoglobin POC ABG HHb (Measured) ABG Methemoglobin Luis Test Hgb O2 Saturation Sodium Potassium Chloride Carbon Dioxide Anion Gap BUN Creatinine Est GFR ( Amer) Est GFR (Non-Af Amer) POC Glucose (mg/dL) 269 H Random Glucose Hemoglobin A1c Calcium Magnesium Total Bilirubin AST ALT Alkaline Phosphatase Total Creatine Kinase CK-MB (Mass) Troponin I NT-Pro-B Natriuret Pep Total Protein Albumin Globulin Albumin/Globulin Ratio Influenza Typ A,B (EIA)
[2017-08-09 17:45] VITALS: PULSE 103
--- NOTE | 2017-08-10 01:21 | CARD ---
APPROVED REPORT EKG Measurement Heart [id number] ID [id number] <Conclusion> Normal sinus rhythm Normal ECG
[2017-08-11] MEDS ORDERED: Influenza Vaccine 60 mcg/0.5 mL SYR (4YR UP) IM ONE (10:00)
== END 2017-08-09 18:23 | disposition home or self-care (01) ==
LOC: C.ER 13:58 → C.9E 18:24 → C.3T 20:24 → C.9E 20:26 → C.6T 23:57
PROVIDERS: ADMIT Hospitalist; ATTEND Hospitalist
DX: J45.901 Unspecified asthma with (acute) exacerbation (principal); F03.90 Unspecified dementia, unspecified severity, without behavioral disturbance, psychotic disturbance, mood disturbance, and anxiety; I10 Essential (primary) hypertension; Z79.51 Long term (current) use of inhaled steroids; Z79.899 Other long term (current) drug therapy; J44.9 Chronic obstructive pulmonary disease, unspecified
CPT/HCPCS: 36415; 71045; 71046; 71275; 78582; 80053; 82803; 82948; 83036; 83735; 83880; 84484; 85025; 85378; 86738; 87804; 93005; 93306; 94640; 96360; 96365; 96372; 96374; 97116; 97162; G0378; G8978; G8979; J1644; J2920; J2930; J3475; J7040; Q9967

== ENCOUNTER 2017-08-15 20:05 | Inpatient (IN) | payer MEDICARE, OTHER ==
--- NOTE | 2017-08-15 21:02 | C.PDOC ---
History Of Present Illness 77 year old male presents to the ED c/o diffuse hives and itching that started after she ate fish for dinner at her adult daycare, patient speaking in complete sentences. Patient denies tongue swelling, lip swelling, headache, CP, SOB, nausea, vomit, abdominal pain. Time Seen by Provider: 08/15/17 21:01 Chief Complaint (Nursing): Allergic Reaction History Per: Patient History/Exam Limitations: no limitations Onset/Duration Of Symptoms: Hrs Current Symptoms Are (Timing): Still Present Context: Food Possible Cause: Food Associated Symptoms: Skin Rash, Itching Severity: None Recent travel outside of the [place]: No Additional History Per: Patient Past Medical History Reviewed: Historical Data, Nursing Documentation, Vital Signs Vital Signs: Last Vital Signs Temp 97.6 F 08/15/17 23:14 Pulse 67 08/15/17 23:14 Resp 18 08/15/17 23:14 BP 164/78 H 08/15/17 23:14 Pulse Ox 97 08/15/17 23:44 - Medical History PMH: Arthritis (L KNEE, BACK), Asthma, COPD, Diabetes, HTN Denies: Chronic Kidney Disease Surgical History: Cholecystectomy Family History: States: Unknown Family Hx - Social History Hx Tobacco Use: No Hx Alcohol Use: No Hx Substance Use: No - Immunization History Hx Tetanus Toxoid Vaccination: No Hx Influenza Vaccination: No Hx Pneumococcal Vaccination: No Review Of Systems Constitutional: Negative for: Fever, Chills Eyes: Negative for: Redness ENT: Negative for: Throat Pain, Throat Swelling Cardiovascular: Negative for: Chest Pain, Palpitations Respiratory: Negative for: Cough, Shortness of Breath Gastrointestinal: Negative for: Nausea, Vomiting, Abdominal Pain Genitourinary: Negative for: Dysuria, Hematuria Musculoskeletal: Negative for: Back Pain Skin: Positive for: Rash Neurological: Negative for: Weakness, Numbness Psych: Negative for: Anxiety Physical Exam - Physical Exam Appears: Non-toxic Skin: Warm, Dry, Rash (diffuse urticaria ) Head: Normacephalic Eye(s): bilateral: Normal Inspection Nose: No Discharge, No Deformity Oral Mucosa: Moist Tongue: No Swelling Lips: No Swelling Throat: No Erythema, No Exudate, No Drooling Neck: Normal ROM, Supple Chest: Symmetrical Cardiovascular: Rhythm Regular, No Murmur Respiratory: No Decreased Breath Sounds, No Rales, No Rhonchi, No Wheezing Gastrointestinal/Abdominal: Soft, No Tenderness, No Guarding, No Rebound Back: No CVA Tenderness, Other (diffuse urticarial rash) Extremity: Normal ROM, No Pedal Edema, No Calf Tenderness, No Deformity, No Swelling Extremity: Bilateral: Atraumatic Pulses: Left Dorsalis Pedis: Normal, Right Dorsalis Pedis: Normal Neurological/Psych: Oriented x3, Normal Speech, Normal Cognition Gait: With Assistance ED Course And Treatment O2 Sat by Pulse Oximetry: 97 (On RA) Pulse Ox Interpretation: Normal Progress Note: Plan: -Benadryl 25 mg IVP. -Pepcid 20 mg IVP. -solumedrol 125 mg IVP. -IV fluids. Patient is able to tolerate PO while in the ED. Reevaluation Time: 23:39 Reassessment Condition: Improved Critical Care Time - Critical Care Note Total Time (in mins): 30 Documented critical care: time excludes all time spent performing seperately billable procedures. Disposition Discussed With : Alex Vega Comment: accepted the pt on his service and took over the care at 11:47PM Doctor Will See Patient In The: Hospital Counseled Patient/Family Regarding: Studies Performed, Diagnosis, Need For Followup, Rx Given - Disposition Referrals: [facility] [Outside] [facility] [Outside] Disposition: HOSPITALIZED Disposition Time: 21:01 Condition: FAIR Additional Instructions: Please return if symptoms recur. Also use benadryl, pepcid and claritin Prescriptions: Epinephrine [Epipen] 0.3 mg IJ ONCE PRN #2 auto.injct PRN Reason: Anaphylaxis Prednisone [Deltasone] 20 mg PO DAILY #5 tablet Instructions: General Allergic Reaction (ED) Forms: Android App Review Source (Scottish) - Clinical Impression Clinical Impression: Acute allergic reaction - Scribe Statement The provider has reviewed the documentation as recorded by the Scribe Nitesh Norwood All medical record entries made by the Scribe were at my direction and personally dictated by me. I have reviewed the chart and agree that the record accurately reflects my personal performance of the history, physical exam, medical decision making, and the department course for this patient. I have also personally directed, reviewed, and agree with the discharge instructions and disposition. Decision To Admit - Pt Status Changed To: Hospital Disposition Of: Inpatient - Admit Certification Admit to Inpatient:: After my assessment, the patient will require hospitalization for at least two midnights. This is because of the severity of symptoms shown, intensity of services needed, and/or the medical risk in this patient being treated as an outpatient. - InPatient: Physician Admission Certification:: After my assessment, the patient will require hospitalization for at least two midnights. This is because of the severity of symptoms shown, intensity of services needed, and/or the medical risk in this patient being treated as an outpatient. - . Bed Request Type: Regular Admitting Physician: Alex Vega Patient Diagnosis: Acute allergic reaction
[2017-08-15] MEDS ORDERED: Sodium Chloride 0.9% 1,000 ML IV ONE (21:06)
[2017-08-15] MEDS ORDERED: DiphenhydrAMINE 50 mg/ml Inj IVP STA (21:06)
[2017-08-15] MEDS ORDERED: Sodium Chloride 0.9% 1,000 ML ONE (21:25)
[2017-08-15] MEDS ORDERED: DiphenhydrAMINE 50 mg/ml Inj ONE (21:26)
[2017-08-15] MEDS ORDERED: Home Med 1 UNIT (Atorvastatin [Lipitor] 40 MG) PO SCH (23:45)
[2017-08-15] MEDS ORDERED: BUDESONIDE IH PRN (23:49)
[2017-08-15] MEDS ORDERED: FORMOTEROL FUMARATE IH PRN (23:49)
[2017-08-15] MEDS ORDERED: Albuterol HFA 90 mcg/actuation (8 g) IH PRN (23:49)
[2017-08-15] MEDS ORDERED: [UNRECOGNIZED DRUG - OTHER] IH PRN (23:49)
[2017-08-16] MEDS ORDERED: MethylPREDNISolone 40 mg Vial ONE ×2 (00:30→06:13)
[2017-08-16] MEDS: MethylPREDNISolone 40 mg Vial IVP SCH ×3 (06:15→11:41)
[2017-08-16] MEDS ORDERED: (Novolin R) Insulin Human Regular 100 units/ml vial ONE (07:35)
[2017-08-16] MEDS: (Novolin R) Insulin Human Regular 100 units/ml vial SC SCH ×2 (07:40→11:49)
[2017-08-16 08:20] LABS: HEMOGLOBIN 10.9 g/dL (11.0-16.0); MEAN CELL VOLUME 91.9 fL (81.0-99.0); MEAN CORPUSCULAR HEMOGLOBIN 31.1 pg (27.0-31.0); MEAN CORPUSCULAR HGB CONC 33.9 g/dL (33.0-37.0); RBC 3.51 Mil/uL (3.80-5.20); RED CELL DISTRIBUTION WIDTH 13.1 % (11.5-14.5); WHITE BLOOD COUNT 15.3 K/uL (4.8-10.8)
[2017-08-16 08:31] LABS: CALCIUM 7.7 mg/dl (8.6-10.4)
[2017-08-16] MEDS ORDERED: BUDESONIDE IH SCH (10:00)
[2017-08-16] MEDS ORDERED: FORMOTEROL FUMARATE IH SCH (10:00)
[2017-08-16] MEDS ORDERED: [UNRECOGNIZED DRUG - OTHER] IH SCH (10:00)
[2017-08-16] MEDS ORDERED: Home Med 1 UNIT (Multivit,Iron,Min 5/Folic Acid [Strovite Forte Caplet] 1 TAB) PO SCH (10:00)
[2017-08-16] MEDS ORDERED: Multivitamin With Minerals Tab PO SCH (10:15)
[2017-08-16] MEDS ORDERED: [UNRECOGNIZED DRUG - OTHER] IH PRN (11:00)
[2017-08-16] MEDS ORDERED: BUDESONIDE IH PRN (11:00)
[2017-08-16] MEDS ORDERED: FORMOTEROL FUMARATE IH PRN (11:00)
[2017-08-16 11:47] VITALS: RESP 20
--- NOTE | 2017-08-16 11:57 | CP.PCM.PN ---
Subjective - Date & Time of Evaluation Date of Evaluation: 08/16/17 Time of Evaluation: 11:54 - Subjective Subjective: PGY [address] Vega 77 year old female with past medical history of asthma, DM, HTN presented to hospital for diffuse urticaria after eating fish. Patient states that she has eating fish before and had no reaction in past. Patient had fish with some potatoes and then broke out into hives and itchiness. She denies having any facial swelling or difficulty breathing. In ED, pt was given Solumedrol 125 mg IVP, pepcid and benadryl. She was admitted for observation. Currently pt still has some blanching redness on her chest and back. Denies having any SOB, CP, abd pain, difficulty swallowing. Objective - Vital Signs/Intake and Output Vital Signs (last 24 hours): Temp Pulse Resp BP Pulse Ox 97.9 F 81 20 102/60 97 08/16/17 10:30 08/16/17 10:30 08/16/17 10:30 08/16/17 10:30 08/16/17 10:30 - Medications Medications: Current Medications Albuterol (Ventolin Hfa 90 Mcg/Actuation (8 G)) 2 puff IH RQ6 PRN PRN Reason: SOB and Wheezing Diphenhydramine HCl (Benadryl) 50 mg PO Q6H PRN PRN Reason: Itching / Pruritus Last Admin: 08/16/17 05:37 Dose: 50 mg Glimepiride (Amaryl) 2 mg PO DAILY [facility] Last Admin: 08/16/17 10:19 Dose: 2 mg Home Med (Budesonide/Formoterol Fumarate [Symbicort 160-4.5 Mcg Inhaler]) 10.2 gm IH BID FIDENCIO Home Med (Budesonide/Formoterol Fumarate [Symbicort 160-4.5 Mcg Inhaler]) 10.2 gm IH Q4H PRN PRN Reason: Shortness of Breath Insulin Human Regular (Novolin R) 1 unit SC ACHS [facility] PRN Reason: Protocol Last Admin: 08/16/17 11:49 Dose: 1 unit Metformin HCl (Glucophage) 500 mg PO BID [facility] Last Admin: 08/16/17 10:19 Dose: 500 mg Methylprednisolone (Solu-Medrol) 40 mg IVP Q6H [facility] Last Admin: 08/16/17 11:41 Dose: 40 mg Montelukast Sodium (Singulair) 10 mg PO DAILY [facility] Last Admin: 08/16/17 10:19 Dose: 10 mg Multivitamins/Minerals (Therapeutic-M Tab) 1 tab PO DAILY [facility] Last Admin: 08/16/17 10:22 Dose: 1 tab Rosuvastatin Calcium (Crestor) 20 mg PO HS [facility] - Labs Labs: 08/16/17 08:12 08/16/17 08:12 - Constitutional Appears: Non-toxic, No Acute Distress - Head Exam Head Exam: ATRAUMATIC - ENT Exam ENT Exam: Mucous Membranes Moist - Respiratory Exam Respiratory Exam: Clear to Ausculation Bilateral. absent: Accessory Muscle Use , Rhonchi, Wheezes, Respiratory Distress - Cardiovascular Exam Cardiovascular Exam: REGULAR RHYTHM. absent: Gallop, Rubs, +S1, +S2, Murmur - GI/Abdominal Exam GI & Abdominal Exam: Soft, Normal Bowel Sounds. absent: Distended, Firm, Guarding, Rigid, Tenderness, Organomegaly - Extremities Exam Extremities Exam: absent: Pedal Edema, Tenderness - Neurological Exam Neurological Exam: Alert, Awake, Oriented x3 - Psychiatric Exam Psychiatric exam: Normal Affect, Normal Mood - Skin Skin Exam: Dry, Intact, Normal Color, Warm Assessment and Plan - Assessment and Plan (Free Text) Assessment: 77 year old female with past medical history of asthma, DM, HTN is admitted for allergic reaction to fish product. allergic reaction Will continue to monitor for adverse reaction Pt will be discharged with epipen, medrol dose pack and benadryl. HTN Pt is currently hypotensive so will hold home medications DM Continue home medication metformin and Amaryl Continue Crestor All managements and orders per Dr. Vega Patient is safe for discharge home per Dr. Vega Pt is told to return to ED if symptoms return or worsen. Pt is to follow up with PMD upon discharge Pt is discharged with Epi-pen, prednisone 20 mg po qd 5 tabs, Benadryl 50 mg po q6 prn #30 tabs.
[2017-08-16] MEDS ORDERED: Pneumococcal 23-Valent Vaccine IM ONE (15:40)
[2017-08-16] MEDS ORDERED: Influenza Vaccine 60 mcg/0.5 mL SYR (4YR UP) IM ONE (15:40)
[2017-08-16 16:01] VITALS: BP 130/71; PULSE 95; TEMP 98.2; O2SAT 95
[2017-08-16] MEDS ORDERED: Fluticasone-Salmeterol 250-50mcg Diskus INH SCH (20:00)
--- NOTE | 2017-08-17 07:04 | HP ---
HISTORY OF PRESENT ILLNESS: Patient comes in with a chief complaint of an allergic reaction after she had a fish meal in the Day Care center. She feels weakness, fatigue. Patient came to the ER with hypertension, , , steroids. Advised admission PHYSICAL EXAMINATION: GENERAL: The patient is awake, alert, oriented. HEENT: Within normal limits. NECK: Supple. CHEST: Symmetrical. HEART: Regular. This is a generalized macular rash locally on the chest and the back. No evidence of ____ edema. Patient felt allergic reaction after eating seafood. Patient bed rest, steroids medication. Alex Vega MD
[2017-08-17] MEDS ORDERED: Multivitamin With Minerals Tab PO SCH (10:00)
== END 2017-08-16 16:20 | disposition home or self-care (01) | DRG 923 ==
LOC: C.ER 20:05 → C.9E 23:46 → C.5S 08-16 09:06
PROVIDERS: ADMIT Internal Medicine Pulmonary Disease; ATTEND Internal Medicine Pulmonary Disease
DX: T78.1XXA Other adverse food reactions, not elsewhere classified, initial encounter (principal); I95.9 Hypotension, unspecified; J44.9 Chronic obstructive pulmonary disease, unspecified; E11.9 Type 2 diabetes mellitus without complications; L27.2 Dermatitis due to ingested food; R53.1 Weakness; L50.0 Allergic urticaria; X58.XXXA Exposure to other specified factors, initial encounter; I10 Essential (primary) hypertension; M17.12 Unilateral primary osteoarthritis, left knee; M47.9 Spondylosis, unspecified; Z90.49 Acquired absence of other specified parts of digestive tract; Z79.4 Long term (current) use of insulin